=== PATIENT | female | born 1990 | race Caucasian/White ===

== ENCOUNTER 2018-02-27 06:03 | Day surgery (SDC) | payer OTHER ==
[2018-02-26 17:47] VITALS: BMI 33.6
[2018-02-27] MEDS ORDERED: LIDOCAINE HCL 1%, 10 MG/ML (20ML VIAL) ONE (07:23)
[2018-02-27] MEDS ORDERED: BACITRACIN 15 GM TUBE TOPICAL OINTMENT ONE (07:43)
[2018-02-27] MEDS ORDERED: MIDAZOLAM HCL 2 MG/2 ML SINGLE DOSE VIAL ONE ×4 (07:45→08:33)
[2018-02-27] MEDS ORDERED: PROPOFOL 20 ML ONE (08:26)
[2018-02-27] MEDS ORDERED: LIDOCAINE 1%/EPI 1:100000 (50 ML MULTI DOSE VIAL) INF ONE ×2 (08:28)
[2018-02-27] MEDS ORDERED: ceFAZolin SODIUM 1 GM VIAL ONE (08:29)
[2018-02-27] MEDS ORDERED: KETOROLAC TROMETHAMINE 30 MG/1 ML VIAL ONE (08:29)
[2018-02-27] MEDS ORDERED: CLINDAMYCIN PHOSPHATE 600 MG/4 ML VIAL ONE (08:29)
[2018-02-27] MEDS ORDERED: BACITRACIN/POLYMYXIN B SULFATE 10 GM BOTTLE TP ONE (08:49)
[2018-02-27 09:32] VITALS: TEMP 98.2
--- NOTE | 2018-02-27 09:35 | OP ---
Operative Note - Note: Operative Date: 02/27/18 Pre-Operative Diagnosis: Posterior and anterior scalp mass Operation: Excision of posterior and anterior scalp mass Post-Operative Diagnosis: Same as Pre-op Surgeon: Ino Kunz Anesthesia: Local, MAC Specimens Removed: Posterior and anterior scalp mass Estimated Blood Loss (mls): 5 Operative Report Dictated: Yes
[2018-02-27 09:50] VITALS: PULSE 81
--- NOTE | 2018-02-27 10:06 | OP ---
DATE OF OPERATION: 02/27/2018 SURGEON: Vicky Kunz MD PREOPERATIVE DIAGNOSIS: Posterior and anterior scalp mass. POSTOPERATIVE DIAGNOSIS: Posterior and anterior scalp mass. PROCEDURE: Excision of posterior and anterior scalp mass. SPECIMEN: Posterior scalp mass 2 cm x 3 cm in size, anterior scalp mass 1 cm x 1 cm in size. ESTIMATED BLOOD LOSS: 5 mL DRAINS: None. ANESTHESIA: MAC/local. The risks and benefits of the procedure were explained. These included bleeding, infection, recurrence of mass, injury to surrounding structures, VA, DVT, PE, as some of the complications, as well as wound dehiscence. Patient understood and signed informed consent. DESCRIPTION OF PROCEDURE: Patient was placed in the left lateral decubitus position. The posterior scalp mass was noted, and bacitracin was used to keep the hair surrounding it out of the way. The previous mass again was noted with the marking from the preoperative area. The area was prepped and draped in usual sterile fashion. Timeout was performed. Local anesthesia was injected, and a transverse incision was made. The area was dissected circumferentially and the mass excised. It was noted to be 2 cm x 3 cm in size. Hemostasis was noted. The wound was irrigated copiously and the wound closed with 2-0 nylon suture x2. Bacitracin was then placed over the wound. Patient was then placed in the supine position and the anterior mass noted. The area was prepped and draped in usual sterile fashion, and again, local anesthesia was injected. Transverse incision was again made and the mass noted and dissected circumferentially. The mass was noted to be 1 cm x 1 cm in size. Hemostasis was achieved and the wound irrigated. Next, 2-0 nylon suture x1 was used to close the skin. Bacitracin again was applied. Patient tolerated the procedure well, was transferred to recovery room in stable condition. VICKY KUNZ M.D. [id number]
[2018-02-27 11:04] VITALS: BP 115/61
--- NOTE | 2018-02-28 15:16 | PATH ---
Surgical Pathology Report Patient Name: ELVIN HINOJOSA [facility]. Rec. #: [id number] /Age/Gender: 1990 (Age: 27) / F Account: [id number] Location: [facility] SURGICAL Taken: 02/27/2018 Received: 02/27/2018 Reported: 02/28/2018 Physicians: Ino Kunz M.D. Specimen(s) Received A: NODULE FROM BACK OF HEAD SCALP B: NODULE FROM FORE HEAD Clinical History Mass forehead and back of head Final Diagnosis A. BACK OF THE HEAD SCALP, NODULE, EXCISION: TRICHILEMMAL CYST (PILAR CYST). B. FOREHEAD SCALP, NODULE, EXCISION: SKIN ADNEXA AND ADJACENT MATURE ADIPOSE TISSUE (SEE COMMENT). COMMENT: THIS MAY REPRESENT A LIPOMA IN A PROPER CLINICAL SETTING. Electronically Signed Hannah Gotti M.D. Gross Description A. Received in formalin labeled "nodule back of head scalp," is a 2.5 x 1.7 x 0.3 cm aggregate of multiple jenkins portions of soft tissue, consistent with a cyst and cyst contents. The specimen is entirely submitted in one cassette. B. Received in formalin labeled "nodule from forehead scalp," is a 0.5 x 0.4 x 0.2 cm jenkins-yellow portion of soft tissue. The specimen is submitted in toto in one cassette. 02/27/201802/27/2018
== END 2018-02-27 11:00 | disposition home or self-care (01) ==
LOC: JASU-SURG 06:03
PROVIDERS: ATTEND Surgery
PROC: 0JB00ZZ Excision of Scalp Subcutaneous Tissue and Fascia, Open Approach (ICD-10-PCS; 2018-02-27)
PROC: 0JB00ZZ Excision of Scalp Subcutaneous Tissue and Fascia, Open Approach (ICD-10-PCS; principal; 2018-02-27 08:00)
DX: D23.4 Other benign neoplasm of skin of scalp and neck (principal); L72.11 Pilar cyst
CPT/HCPCS: 84703; 88304-TC; 94760

== ENCOUNTER 2019-04-13 04:45 | Emergency (ER) | payer OTHER ==
[2019-04-13 05:20] VITALS: BMI 36.0
--- NOTE | 2019-04-13 05:41 | PDOC ---
History of Present Illness - General Chief Complaint: Allergic Reaction Stated Complaint: POSSIBLE ALLERGIC REACTION - History of Present Illness Initial Comments: The pt is a 28F w/ a history of spinal compression fx and chronic back pain who presents for evaluation of tongue swelling and dry mouth, first noticed at 0200 today after eating pizza with broccoli on it last night. She denies having this reaction to these foods previously. Currently in the ED, pt reports feeling anxious. Endorses NB diarrhea x1 Denies SOB, CP, fever, lightheadedness, change in sensation or taste, rash, swelling No suspicious foods. PMH: Denies PSH: Denies Meds: Denies Allergies: Pepto/PCN (facial swelling) SH: Social EtOH, denies tobacco or illicit drug use 04/13/19 05:49 Past History - Past Medical History Allergies/Adverse Reactions: Allergies Allergy/AdvReac Type Severity Reaction Status Date / Time bismuth subsalicylate Allergy Severe Swelling Verified 04/13/19 05:19 [From Pepto-Bismol] Penicillins AdvReac Severe Swelling Verified 04/13/19 05:19 Home Medications: Ambulatory Orders Ibuprofen [Motrin -] 600 mg PO PRN 12/27/14 Cetirizine HCl/Pseudoephedrine [Zyrtec-D Tablet] 1 each PO Q12H PRN 02/26/18 Docusate Sodium [Colace -] 100 mg PO TID #90 capsule 02/27/18 Oxycodone HCl/Acetaminophen [Percocet 5-325 mg Tablet] 1 - 2 tab PO Q6H #20 tab MDD 4 02/27/18 Diphenhydramine HCl [Benadryl -] 25 mg PO Q6H #16 capsule 04/13/19 Epinephrine [Epipen 2-Lee] 0.3 mg IJ ASDIR #1 kit 04/13/19 Prednisone [Deltasone] 40 mg PO DAILY #4 tablet 04/13/19 Asthma: Yes ("WITH ALLERGIES") Cancer: No Cardiac Disorders: No CVA: No COPD: No CHF: No Dementia: No Diabetes: No GI Disorders: No Disorders: No HTN: No Hypercholesterolemia: No Liver Disease: No Seizures: No Thyroid Disease: No - Surgical History Abdominal Surgery: No Appendectomy: No Cardiac Surgery: No Cholecystectomy: No Lung Surgery: No Neurologic Surgery: No Orthopedic Surgery: No - Immunization History Immunization Up to Date: Yes - Suicide/Smoking/Psychosocial Hx Smoking History: Never smoked Have you smoked in the past 12 months: No Information on smoking cessation initiated: No Hx Alcohol Use: No Drug/Substance Use Hx: No Substance Use Type: Alcohol Hx Substance Use Treatment: No Review of Systems - Review of Systems Able to Perform ROS?: Yes Comments:: GENERAL/CONSTITUTIONAL: No fever or chills. No weakness HEAD, EYES, EARS, NOSE AND THROAT: No change in vision. No ear pain or discharge. No sore throat CARDIOVASCULAR: No chest pain or shortness of breath RESPIRATORY: Denies cough, hemoptysis GASTROINTESTINAL: No nausea, vomiting, constipation GENITOURINARY: No dysuria, frequency, or change in urination MUSCULOSKELETAL: No joint or muscle swelling or pain. No neck or back pain SKIN: No rash NEUROLOGIC: No headache, vertigo, loss of consciousness, or change in strength/ sensation ENDOCRINE: No increased thirst. No abnormal weight change HEMATOLOGIC/LYMPHATIC: No anemia, easy bleeding, or history of blood clots ALLERGIC/IMMUNOLOGIC: No hives or skin allergy 04/13/19 05:40 Is the patient limited Danish proficient: No *Physical Exam - Vital Signs Last Vital Signs Temp Pulse Resp BP Pulse Ox 97.4 F L 72 18 128/81 98 04/13/19 05:19 04/13/19 05:19 04/13/19 05:19 04/13/19 05:04/13/19 05:19 - Physical Exam Comments: GENERAL: Awake, alert, and oriented to person/place/time, in no acute distress HEAD: No signs of trauma, normocephalic, atraumatic EYES: PERRLA, EOMI, sclera anicteric, conjunctiva clear ENT: Hearing grossly normal, nares patent, oropharynx clear without exudates. Moist mucosa LUNGS: No distress, speaks in full sentences, clear to auscultation bilaterally HEART: Regular rate and rhythm, normal S1 and S2, no murmurs appreciated, peripheral pulses normal and equal bilaterally ABDOMEN: Soft, nontender, normoactive bowel sounds. No guarding, no rebound EXTREMITIES: Normal inspection, Normal range of motion, no edema. No clubbing or cyanosis NEUROLOGICAL: Cranial nerves II through XII grossly intact. Normal speech, normal gait, no focal sensorimotor deficits SKIN: Warm, Dry 04/13/19 05:40 Medical Decision Making - Medical Decision Making 28F w/ no reported PMH presents for evaluation of dry mouth and swollen tongue concerning for allergic reaction ED Course Treatment initiated for presumed allergic reaction Will treat with Benadryl and Prednisone Rx for Benadryl, Prednisone, and EpiPen sent to pt's pharmacy Pt advised to keep an allergy journal Plan for D/C w/ Computer Systems Auditor and PCP Discharge instructions and return precautions given Pt in agreement and verbalized understanding Dispo: home 04/13/19 06:02 *DC/Admit/Observation/Transfer Diagnosis at time of Disposition: Allergic reaction Qualifiers: Encounter type: initial encounter Qualified Code(s): T78.40XA - Allergy, unspecified, initial encounter - Discharge Dispostion Disposition: HOME Condition at time of disposition: Stable Decision to Admit order: No - Prescriptions Prescriptions: Diphenhydramine HCl [Benadryl -] 25 mg PO Q6H #16 capsule Prednisone [Deltasone] 40 mg PO DAILY #4 tablet - Referrals Referrals: Jose Mariano [Primary Care Provider] - Samy Montemayor MD [Staff Physician] - - Patient Instructions Printed Discharge Instructions: DI for General Allergic Reactions Additional Instructions: You were seen in the Emergency Department for evaluation of concern for an allergic reaction. You were treated with Prednisone and Benadryl and a prescription for those were sent to your pharmacy as well for the next 4 days. A prescription for an EpiPen was sent as well. A referral was provided for an test engineering technician. Follow up with your primary care provider and the referral given. Review the handout provided at discharge. We would also recommend keeping a journal of possible allergy triggers. Return to the Emergency Department if you develop fevers/chills, chest pain, trouble breathing, chest tightness, difficulty swallowing, tongue or throat swelling, rash, worsening symptoms, or any new/concerning symptoms. - Post Discharge Activity
[2019-04-13] MEDS ORDERED: LACTATED RINGERS SOLUTION 1000 ML INFUS.BAG IV ONE (06:04)
[2019-04-13] MEDS ORDERED: diphenhydrAMINE HCL 25 MG CAPSULE (FP) PO ONE ×2 (06:04→06:08)
[2019-04-13] MEDS ORDERED: predniSONE 20 MG TABLET (UD) PO ONE (06:13)
[2019-04-13] MEDS ORDERED: predniSONE 20 MG TABLET (UD) ONE (06:16)
--- NOTE | 2019-04-13 06:18 | PDOC ---
Documentation entered by Angeles Hamm SCRIBE, acting as scribe for Anthony Banerjee MD. Anthony Banerjee MD: This documentation has been prepared by the tiffanieibeHansel Adrianna, SCRIBE, under my direction and personally reviewed by me in its entirety. I confirm that the documentation accurately reflects all work, treatment, procedures, and medical decision making performed by me. Attending Attestation - Resident Resident Name: Carl Lee - ED Attending Attestation I have performed the following: I have examined & evaluated the patient, The case was reviewed & discussed with the resident, I agree w/resident's findings & plan, Exceptions are as noted - HPI HPI: The patient is a 28 year old female, with a significant PMH of asthma, who presents to the ED for evaluation of swollen tongue and dry mouth for 4 hours. Patient notes she was out to dinner (pizza and 2 beers) earlier tonight, and later developed a tingling sensation on her tongue, with what she believes is tongue swelling and cotton mouth. She reports feeling anxious, and reports one episode of diarrhea secondary to the anxious feeling. She denies any changes in vision, sensation, rash, facial swelling, or numbness. Allergies: Penicillins, bismuth subsalicylate Surgical History: None reported Social History: Denies EtOH, tobacco, or illicit drug use. PCP: Dr. Mariano 04/13/19 06:18 - Physicial Exam PE: GENERAL: Awake, alert, and fully oriented, in no acute distress. Talking comfortably. HEAD: No signs of trauma ENT: Hearing grossly normal. No evidence of uvula swelling. No evidence of tongue swelling. No evidence of lip swelling. NECK: Normal ROM. Supple. LUNGS: Breath sounds equal, clear to auscultation bilaterally. No wheezes, and no crackles HEART: Regular rate and rhythm, normal S1 and S2, no murmurs, rubs or gallops EXTREMITIES: Normal range of motion, no edema. No clubbing or cyanosis. No cords, erythema, or tenderness NEUROLOGICAL: Cranial nerves II through XII grossly intact. Normal speech. 04/13/19 06:18 - Medical Decision Making 04/13/19 06:14 A portion of this note was documented by scribe services under my direction. I have reviewed the details of the note, within reason, and agree with the documentation with the following case summary and management plan written by me. Patient treated in the ED. Nursing notes are reviewed and incorporated into the medical decision-making. Vital signs reviewed. Peripheral IV access obtained by the nurse, laboratory studies are drawn and sent, reviewed and interpreted by myself. Vital Signs Temp Pulse Resp BP Pulse Ox 97.4 F L 72 18 128/81 98 04/13/19 05:19 04/13/19 05:19 04/13/19 05:19 04/13/19 05:19 04/13/19 05:19 28-year-old female patient presents with concerns for ALLERGIC reaction. The patient ate some pizza with broccoli on it yesterday. Since then she felt a tingling sensation on her tongue and what she thought was dry, and-like feeling and mild tongue swelling. Denies any chest pain or shortness of breath. Denies any changes in voice. Denies any other acute findings. The patient's physical exam is normal demonstrate no acute findings. We'll however treat as ALLERGIC reaction initiate Benadryl and prednisone. We'll write a prescription for EpiPen in case of anaphylaxis. An we'll refer patient to ALLERGY. I advised patient that she should keep a journal and track of what may potentially ALLERGIC to. I discussed the physical exam findings, ancillary test results and final diagnoses with the patient. I answered all of the patient's questions. The patient was satisfied with the care received and felt comfortable with the discharge plan and treatment plan. The patient will call their primary care physician within 24 hours to arrange follow-up and will return to the Emergency Department with any new, persistant or worsening symptoms.
[2019-04-13 06:42] VITALS: BP 123/60; PULSE 60; TEMP 98.1
== END 2019-04-13 06:43 | disposition home or self-care (01) ==
LOC: JER 04:45
DX: T78.40XA Allergy, unspecified, initial encounter (principal); X58.XXXA Exposure to other specified factors, initial encounter
CPT/HCPCS: 99282-25

== ENCOUNTER 2020-05-03 06:33 | Emergency (ER) | payer OTHER ==
[2020-05-03 06:43] VITALS: BMI 29.8
--- NOTE | 2020-05-03 07:04 | PDOC ---
History of Present Illness - General Chief Complaint: Pain Stated Complaint: ABDOMINAL PAIN Time Seen by Provider: 05/03/20 07:04 - History of Present Illness Initial Comments: 05/03/20 07:47 29 F with no PMH presented to the ED with 1 day of abdominal pain. She said pain started out yesterday after she ate spicy food. She has epigastric pain, and diarrhea. Pain was so severe; she couldn't sleep. But pain is relief after Motri n. Today, she came here to check out due to residual pain. She denies vomitting, nausea, chest pain, SOB, dizziness. PMH: sport induced asthma PSH: maxillary oral surgery, . Med: none SS: denies smoking, drug, and alcohol Allergy: penicillins, bismuth. ROS GENERAL/CONSTITUTIONAL: No fever or chills. No weakness. HEAD, EYES, EARS, NOSE AND THROAT: No change in vision. No ear pain or discharge. No sore throat. CARDIOVASCULAR: No chest pain or shortness of breath RESPIRATORY: No cough, wheezing, or hemoptysis. GASTROINTESTINAL: No nausea, vomiting, or constipation. +diarrhea, abdominal pain GENITOURINARY: No dysuria, frequency, or change in urination. MUSCULOSKELETAL: No joint or muscle swelling or pain. No neck or back pain. SKIN: No rash NEUROLOGIC: No headache, vertigo, loss of consciousness, or change in strength/sensation. ENDOCRINE: No increased thirst. No abnormal weight change HEMATOLOGIC/LYMPHATIC: No anemia, easy bleeding, or history of blood clots. ALLERGIC/IMMUNOLOGIC: No hives or skin allergy. PE GENERAL: Awake, alert, and fully oriented, in no acute distress HEAD: No signs of trauma, normocephalic, atraumatic EYES: PERRLA, EOMI, sclera anicteric, conjunctiva clear ENT: Auricles normal inspection, hearing grossly normal, nares patent, oropharynx clear without exudates. Moist mucosa NECK: Normal ROM, supple, no lymphadenopathy, JVD, or masses LUNGS: No distress, speaks full sentences, clear to auscultation bilaterally HEART: Regular rate and rhythm, normal S1 and S2, no murmurs, rubs or gallops, peripheral pulses normal and equal bilaterally. ABDOMEN: Soft, nontender, normoactive bowel sounds. No guarding, no rebound. No masses. Horizontal csection scar EXTREMITIES : Normal inspection, Normal range of motion, no edema. No clubbing or cyanosis. NEUROLOGICAL: Cranial nerves II through XII grossly intact. Normal speech, normal gait, no focal sensorimotor deficits SKIN: Warm, Dry, normal turgor, no rashes or lesions noted Past History - Medical History Allergies/Adverse Reactions: Allergies Allergy/AdvReac Type Severity Reaction Status Date / Time bismuth subsalicylate Allergy Severe Swelling Verified 05/03/20 06:37 [From Pepto-Bismol] Penicillins AdvReac Severe Swelling Verified 05/03/20 06:37 Home Medications: Ambulatory Orders Ferrous Sulfate [Iron] 325 mg PO DAILY 03/03/20 Insulin Detemir [Levemir Flextouch] 62 unit SQ HS 03/03/20 Prenat 115/Iron Fum/Folic/Dss [ 19 Tablet] 1 tab PO DAILY 03/03/20 Ibuprofen [Motrin -] 600 mg PO QID #60 tablet 03/05/20 Oxycodone HCl/Acetaminophen [Percocet 5-325 mg Tablet] 1 tab PO Q6H #5 tablet MDD 4 03/05/20 Ciprofloxacin HCl 500 mg PO BID #10 tablet 05/03/20 metroNIDAZOLE [Flagyl -] 500 mg PO TID 5 Days #15 tablet 05/03/20 Asthma: No Cancer: No Cardiac Disorders: No CVA: No COPD: No CHF: No Dementia: No Diabetes: Yes (GESTATIONAL DIABETES) GI Disorders: No Disorders: No HTN: No Hypercholesterolemia: No Liver Disease: No Seizures: No Thyroid Disease: No - Surgical History Abdominal Surgery: No Appendectomy: No Cardiac Surgery: No Cholecystectomy: No Lung Surgery: No Neurologic Surgery: No Orthopedic Surgery: No - Immunization History Td Vaccination: Yes TDAP Vaccination: Yes Immunization Up to Date: Yes - Psycho-Social/Smoking History Smoking History: Never smoked Have you smoked in the past 12 months: No Information on smoking cessation initiated: No - Substance Abuse Hx (Audit-C & DAST Scrn) How often the patient has a drink containing alcohol: Never Score: In Men: 4 or > Positive; In Women: 3 or > Positive: 0 Screen Result (Pos requires Nsg. Audit-10AR): Negative In the last yr the pt used illegal drug/Rx for NonMed reason: No Score: Yes response is considered Positive: 0 Screen Result (Positive result requires Nsg. DAST-10): Negative *Physical Exam - Vital Signs Last Vital Signs Temp Pulse Resp BP Pulse Ox 102 H 20 141/82 99 05/03/20 06:37 05/03/20 06:37 05/03/20 06:37 05/03/20 06:37 ED Treatment Course - LABORATORY CBC & Chemistry Diagram: 05/03/20 07:52 05/03/20 07:52 Medical Decision Making - Medical Decision Making 05/03/20 07:52 29 F with No PMH presented to the ED for abdominal pain after eating spicy food DDX: peptic ulcer, GI bugs, gallstone... Plan: Fluids, GI cocktail ( maalox, pepcid, tylenoL). 05/03/20 08:56 EKG show sinus rhthym with sinus arrhthmia, no ST changes suggesting ischemic , vent rate 62 05/03/20 10:33 Lab came back with Elevated AST, ALT, AL phos Abdominal ulstrasound revealed gallstone, no dilation of the duct. Consult gen surg . Gen surg called back. Dr. Contreras rec she should be going home, with augmentin for 5 days, and follow up with gen surg, and should be on a low fat diet. 05/03/20 10:3 05/03/20 10:[address] Petty , he rec to follow up by monday with discharge paper. Due to allergy to pencillin, she can't take augmentin. Will give flagil TID, and cipro BID Discharge - Discharge Information Problems reviewed: Yes Clinical Impression/Diagnosis: Gallstone Condition: Good Disposition: HOME - Admission No - Additional Discharge Information Prescriptions: Ciprofloxacin HCl 500 mg PO BID #10 tablet metroNIDAZOLE [Flagyl -] 500 mg PO TID 5 Days #15 tablet - Follow up/Referral Referrals: Amisha Ruiz MD [Primary Care Provider] - Samy Contreras MD [Staff Physician] - - Patient Discharge Instructions Patient Printed Discharge Instructions: DI for Gallstones, DI for Gastroeso phageal Reflux Disease (GERD) Additional Instructions: You are here for abdominal pain. We found gallstones on your ultrasound. General surgeon Dr. Contreras recommenced to go home with 2 antibiotics for 5 days, and have a low fat diet. Because you are allergic to penicillins, you cannot take augmentin. Please come back if you are having, worsening, nausea, vomiting, severe pain, yellow skin, pale stool. For pain, you can take tylenol. I sent the script of antibiotic to your preferred pharmacy. I called your PCP, he recommended you to go see him by Monday. Print Language: [place] ISLANDER - Post Discharge Activity
[2020-05-03] MEDS ORDERED: MAG HYDROX/AL HYDROX/SIMETH -MYLANTA- ORAL SUSPENSION PO ONE (07:25)
[2020-05-03] MEDS ORDERED: ACETAMINOPHEN 325 MG TABLET (FP) PO ONE (07:25)
[2020-05-03] MEDS ORDERED: FAMOTIDINE 20 MG TABLET PO ONE (07:25)
[2020-05-03] MEDS ORDERED: LACTATED RINGERS SOLUTION 1000 ML INFUS.BAG IV ONE (07:33)
[2020-05-03] MEDS ORDERED: FAMOTIDINE 20 MG/50 ML IVPB 20 MG/50 ML MG IVPB ONE ×2 (07:34→07:40)
[2020-05-03] MEDS ORDERED: ACETAMINOPHEN INJECTION 100 ML IVPB ONE (07:39)
[2020-05-03] MEDS ORDERED: MAG HYDROX/AL HYDROX/SIMETH 30 ML UNIT-DOSE CUP ONE (07:40)
--- NOTE | 2020-05-03 07:53 | PDOC ---
Attending Attestation - Resident Resident Name: GilmarNikolaiEvan - ED Attending Attestation I have performed the following: I have examined & evaluated the patient, The case was reviewed & discussed with the resident, I agree w/resident's findings & plan, Exceptions are as noted - HPI HPI: 05/03/20 07:48 29 YOF with h/o chronic back pain from lumbar compression fracture who is 2 months s/p LTCS after induction and CLAUDIA for post-term , was c/b GDM, who p/w epigastric pain last night until this morning, now with only mild residual pain. She notes having ate a spicy pepper sauce last night. She also notes recent exacerbated chronic back pain which is otherwise unchanged in character from her normal chronic pain. Denies f/c/n/v/d/c, LARA, lightheadedness, vertigo, n/t/w focally, chance of being currently, or other concerns. Denies ever having this pain before. - Physicial Exam PE: 05/03/20 07:53 GENERAL: well-appearing, A/Ox4, no distress, answers questions appropriately, pleasant, obese HEENT: PERRLA, EOMI, moist mucous membranes NECK/BACK: no midline ttp, no spinal step-off or deformity, no hematoma, full ROM, neck supple CARDIOVASCULAR: regular rate/rhythm, no MGR, strong peripheral pulses, capillary refill <2 seconds, extremities wwp, no edema LUNGS/RESPIRATORY: no respiratory distress, CTAB GI/ABDOMEN: gravid abdomen, symmetric [id number], normoactive BS, soft, minimal epigastric ttp, no midline pulsatile masses : no CVA tenderness MSK/EXTREMITIES: no muscle atrophy, no acute deformity SKIN: warm and dry, no pallor, no jaundice, no rash, no pathologic-appearing bruising, no skin breakdown, no cuts, no lesions NEUROLOGICAL: GCS 15, CN II-XII grossly intact, 5/5 strength proximally and distally, no facial droop - Medical Decision Making 05/03/20 09:04 29YOF, 2 months post-op from uncomplicated LTCS, p/w epigastric abdominal pain without prior history. Initial Vital Signs Pulse Resp BP Pulse Ox 102 H 20 141/82 99 05/03/20 06:37 05/03/20 06:37 05/03/20 06:37 05/03/20 06:37 DDX IBNLT: most likely GERD, PUD, or cholecystitis (calculous), choledocholithiasis, wwo pancreatitis. Possible musculoskel etal/constipation/gas. Very unlikely Ryyl-Deti-Dfvxbm syndrome, HELLP, or other more rare etiology. W/U ordered: Labs, EKG, USS limited GB TX ordered: IVF, Tylenol, Pepcid, Maalox Laboratory Tests 05/03/20 05/03/20 07:52 07:52 WBC 11.6 H RBC 4.78 Hgb 13.5 Hct 41.1 D MCV 86.1 MCH 28.3 MCHC 32.9 RDW 13.9 D Plt Count 367 D MPV 8.0 Sodium 138 Potassium 4.6 Chloride 106 Carbon Dioxide 24 Anion Gap 7 L BUN 13.3 Creatinine 0.7 Est GFR (CKD-EPI)AfAm 134.75 Est GFR (CKD-EPI)NonAf 116.26 Random Glucose 87 Calcium 9.3 Total Bilirubin 1.0 AST 102 H ALT 111 H Alkaline Phosphatase 136 H Total Protein 7.6 Albumin 3.7 Lipase 161 05/03/20 09:08 Patient's LFTs elevated and will get USS abdomen limited r/o cholecystitis/choledocholithiasis. US/ABDOMEN US -LIMITED HISTORY PROVIDED: Right upper quadrant pain. Real time examination of the abdomen demonstrates the following: The gallbladder is normal in size and does contain small calculi. There is no evidence of intra or extrahepatic biliary duct dilatation. The liver is enlarged measuring 20 cm in craniocaudad dimension. It is hyperechoic in texture consistent with diffuse fatty infiltration. No discrete intrahepatic masses are identified. Hepatopedal flow is documented within the main portal vein. The pancreas is normal in size and texture with no pancreatic masses identified. The tail of the pancreas was not well visualized due to overlying bowel gas. There is no evidence of hydronephrosis or acute abnormalities of the right kidney. There is no evidence of AAA. The IVC is patent. IMPRESSION: 1. Cholelithiasis. 2. Hepatomegaly with diffuse fatty infiltration of the liver. Patient's pain has much improved after medications. We have spoken with Dr. Contreras (radio television announcer for Gen Surg) and discussed all results including H&P, labs, imaging, and repeat exam after medications. Dr. Contreras who requests antibiotics as outpatient and low-fat diet, f/u in clinic with him. Last Vital Signs Temp Pulse Resp BP Pulse Ox 98.1 F 65 16 121/75 100 05/03/20 10:37 05/03/20 10:37 05/03/20 10:37 05/03/20 10:37 05/03/20 10:37 On last re-assessment patient has benign abdominal exam without tenderness, states she is comfortable with the plan. VSS. We discuss specific return pr ecautions as noted by the residents in her discharge instructions. She is instructed to come back for any new or concerning symptoms and she is instructed to have very low threshold to come back in. Heart Score/ECG Review #1 05/03/20 08:46 Sinus rhythm, rate 62, normal axis and intervals, no ischemic ST-T changes Discharge - Discharge Information Problems reviewed: Yes Clinical Impression/Diagnosis: Gallstone, Biliary colic Condition: Good Disposition: HOME - Admission No - Follow up/Referral Referrals: Amisha Ruiz MD [Primary Care Provider] - Samy Contreras MD [Staff Physician] - - Patient Discharge Instructions Patient Printed Discharge Instructions: DI for Gallstones, DI for Gastroesophageal Reflux Disease (GERD) Additional Instructions: You are here for abdominal pain. We found gallstones on your ultrasound. General surgeon Dr. Contreras recommenced to go home with 2 antibiotics for 5 days, and have a low fat diet. Because you are allergic to penicillins, you cannot take augmentin. Please come back if you are having, worsening, nausea, vomiting, severe pain, yellow skin, pale stool. For pain, you can take tylenol. I sent the script of antibiotic to your preferred pharmacy. I called your PCP, he recommended you to go see him by Monday. Print Language: SYRIAC - Post Discharge Activity
[2020-05-03 08:24] LABS: HEMATOCRIT 41.1 % (32.4-45.2); HEMOGLOBIN 13.5 GM/dL (10.7-15.3); MCH 28.3 pg (25.7-33.7); MCHC 32.9 g/dl (32.0-36.0); MEAN CELL VOLUME 86.1 fl (80-96); PLATELET COUNT 367 K/MM3 (134-434); RBC 4.78 M/mm3 (3.60-5.2); RDW 13.9 % (11.6-15.6); WHITE BLOOD COUNT 11.6 K/mm3 (4.0-10.0)
[2020-05-03 08:51] LABS: ALBUMIN 3.7 g/dl (3.4-5.0); BLOOD UREA NITROGEN 13.3 mg/dL (7-18); CALCIUM 9.3 mg/dL (8.5-10.1); CREATININE 0.7 mg/dL (0.55-1.3); POTASSIUM 4.6 mmol/L (3.5-5.1); TOT PROT 7.6 g/dl (6.4-8.2)
[2020-05-03 10:39] VITALS: BP 121/75; PULSE 65; TEMP 98.1
--- NOTE | 2020-05-03 17:21 | EKG ---
Test Reason : Blood Pressure : / mmHG Vent. Rate : 062 BPM Atrial Rate : 062 BPM P-R Int : 142 ms QRS Dur : 076 ms QT Int : 418 ms P-R-T Axes : 045 041 049 degrees QTc Int : 424 ms NORMAL SINUS RHYTHM WITH SINUS ARRHYTHMIA CANNOT RULE OUT ANTERIOR INFARCT , AGE UNDETERMINED ABNORMAL ECG NO PREVIOUS ECGS AVAILABLE Confirmed by MD Madison Edward ([id number]) on 05/03/2020 5:21:13 PM Referred By: Confirmed By:Larry Madison MD
== END 2020-05-03 11:15 | disposition home or self-care (01) ==
LOC: JER 06:33
PROC: 3E033GC Introduction of Other Therapeutic Substance into Peripheral Vein, Percutaneous Approach (ICD-10-PCS; principal; 2020-05-03)
DX: K80.20 Calculus of gallbladder without cholecystitis without obstruction (principal)
CPT/HCPCS: 36415; 76705-TC; 80053; 83690; 85027; 93005; 93010; 99285-25

== ENCOUNTER 2020-05-04 23:24 | Emergency (ER) | payer OTHER ==
[2020-05-04 23:38] VITALS: BMI 33.5
--- NOTE | 2020-05-04 23:43 | PDOC ---
Rapid Medical Evaluation Chief Complaint: Pain Time Seen by Provider: 05/04/20 23:36 Medical Evaluation: Allergies Allergy/AdvReac Type Severity Reaction Status Date / Time bismuth subsalicylate Allergy Severe Swelling Verified 05/03/20 06:37 [From Pepto-Bismol] Penicillins AdvReac Severe Swelling Verified 05/03/20 06:37 Vital Signs Temp Pulse Resp BP Pulse Ox 98.0 F 62 131/87 99 05/04/20 23:32 05/04/20 23:32 05/04/20 23:32 05/04/20 23:32 05/04/20 23:39 29 year old female with gallstones c/o epigastric pain. " i'm having a gall bladder attack" seen in the ER last night for similar complaints. PE: patient alert ox3. A: epigastric abdominal pain P: labs UA 05/04/20 23:42 Discharge Disposition - Diagnosis Epigastric abdominal pain - Discharge Dispostion Last Admission D/C Date: 03/05/20 - Referrals Referrals: Amisha Ruiz MD [Primary Care Provider] - - Patient Instructions - Post Discharge Activity
--- NOTE | 2020-05-05 00:19 | PDOC ---
History of Present Illness - General Chief Complaint: Pain Stated Complaint: PAIN/GALLSTONES/EVALUATION Time Seen by Provider: 05/04/20 23:36 History Source: Patient - History of Present Illness Initial Comments: 05/05/20 01:11 29 year old female c/o epigastric pain Patient was diagnosed with cholelithi asis 2 days ago reports taking Pepcid prior to arrival currently with no pain. Patient has no vomiting no nausea. Patient denies fever/chills. Patient reports that she ate a low-fat diet today Past History - Medical History Allergies/Adverse Reactions: Allergies Allergy/AdvReac Type Severity Reaction Status Date / Time bismuth subsalicylate Allergy Severe Swelling Verified 05/03/20 06:37 [From Pepto-Bismol] Penicillins AdvReac Severe Swelling Verified 05/03/20 06:37 Home Medications: Ambulatory Orders Ferrous Sulfate [Iron] 325 mg PO DAILY 03/03/20 Insulin Detemir [Levemir Flextouch] 62 unit SQ HS 03/03/20 Prenat 115/Iron Fum/Folic/Dss [ 19 Tablet] 1 tab PO DAILY 03/03/20 Ibuprofen [Motrin -] 600 mg PO QID #60 tablet 03/05/20 Oxycodone HCl/Acetaminophen [Percocet 5-325 mg Tablet] 1 tab PO Q6H #5 tablet MDD 4 03/05/20 Ciprofloxacin HCl 500 mg PO BID #10 tablet 05/03/20 metroNIDAZOLE [Flagyl -] 500 mg PO TID 5 Days #15 tablet 05/03/20 Famotidine [Pepcid -] 40 mg PO DAILY #14 tablet 05/05/20 Asthma: No Cancer: No Cardiac Disorders: No CVA: No COPD: No CHF: No Dementia: No Diabetes: Yes (GESTATIONAL DIABETES) GI Disorders: No Disorders: No HTN: No Hypercholesterolemia: No Liver Disease: No Seizures: No Thyroid Disease: No - Surgical History Abdominal Surgery: No Appendectomy: No Cardiac Surgery: No Cholecystectomy: No Lung Surgery: No Neurologic Surgery: No Orthopedic Surgery: No - Immunization History Td Vaccination: Yes TDAP Vaccination: Yes Immunization Up to Date: Yes - Psycho-Social/Smoking History Smoking History: Never smoked Have you smoked in the past 12 months: No Information on smoking cessation initiated: No - Substance Abuse Hx (Audit-C & DAST Scrn) How often the patient has a drink containing alcohol: Never Score: In Men: 4 or > Positive; In Women: 3 or > Positive: 0 Screen Result (Pos requires Nsg. Audit-10AR): Negative In the last yr the pt used illegal drug/Rx for NonMed reason: No Score: Yes response is considered Positive: 0 Screen Result (Positive result requires Nsg. DAST-10): Negative Review of Systems - Review of Systems Able to Perform ROS?: Yes Is the patient limited Croatian proficient: No Constitutional: No: Symptoms Reported, See HPI, Chills, Diaphoresis, Fever, Loss of Appetite, Malaise, Night Sweats, Weakness, Weight Stable, Unintentional Wgt. Loss, Unexplained wgt Loss, Other ABD/GI: Yes: Abdominal cramping. No: Symptoms Reported, See HPI, Abdominal Distended, Abd. Pain w/ defecation, Blood Streaked Bowels, Constipated, Diarrhea, Difficulty Swallowing, Nausea, Poor Appetite, Poor Fluid Intake, Rectal Bleeding, Vomiting, Indigestion, Tarry Stools, Other : No: Symptoms Reported, See HPI, Burning, Dysuria, Discharge, Frequency, Flank Pain, Hematuria, Incontinence, Pain, Urgency, Testicular Mass, Testicular Swelling, Lesions, Testicular Pain, Other *Physical Exam - Vital Signs Last Vital Signs Temp Pulse Resp BP Pulse Ox 98.0 F 62 20 131/87 99 05/04/20 23:32 05/04/20 23:32 05/04/20 23:32 05/04/20 23:32 05/04/20 23:32 - Physical Exam General Appearance: Yes: Appropriately Dressed Respiratory/Chest: positive: Lungs Clear, Normal Breath Sounds Cardiovascular: positive: Regular Rhythm, Regular Rate Gastrointestinal/Abdominal: positive: Normal Bowel Sounds, Soft. negative: Tender, Flat, Organomegaly, Pulsatile Mass, Increased Bowel Sounds, Decreased BS, Protuberent, Distended, Guarding, Rebound, Tenderness, Hernia, Mass, Hepatomegaly, Spleenomegaly, Other Extremity: positive: Normal Capillary Refill, Normal Inspection, Normal Range of Motion Integumentary: positive: Normal Color, Dry, Warm Neurologic: positive: Fully Oriented, Alert, Normal Mood/Affect ED Treatment Course - LABORATORY CBC & Chemistry Diagram: 05/05/20 00:32 05/05/20 00:32 ED Progress Note - Progress Note Progress Note: 05/05/20 05:03 A: cholelithiases; fatty liver P: cbc cmp LFTS: elevated US: negative Medical Decision Making - Medical Decision Making 05/05/20 02:15 Abdominal US: Right upper quadrant pain,The liver is mildly fatty and enlarged up to 20.4 cm, without mass or biliary duct dilation. Small mobile gallstone is noted without secondary findings of cholecystitis. The CBD is not dilated and measures5 millimeters in diameter. Right kidney measures 10.7centimeters in length and is unremarkable. The visualized aorta and IVC are normal. Pancreas is partially obscured, but appears normal. Abdominal duplex: There is normal hepatopedal flow in the main portal vein. IMPRESSION: Enlarged mildly fatty liver 05/05/20 strict return precautions were reviewed with patient. Discharge - Discharge Information Problems reviewed: Yes Clinical Impression/Diagnosis: Epigastric abdominal pain, Fatty liver, Elevated liver enzymes Cholelithiasis Qualifiers: Cholelithiasis location: gallbladder Cholecystitis presence: without cholecystitis Biliary obstruction: without biliary obstruction Qualified Code(s): K80.20 - Calculus of gallbladder without cholecystitis without obstruction Condition: Improved Disposition: HOME - Additional Discharge Information Prescriptions: Famotidine [Pepcid -] 40 mg PO DAILY #14 tablet - Follow up/Referral Referrals: Amisha Ruiz MD [Primary Care Provider] - Call tomorrow - Patient Discharge Instructions Patient Printed Discharge Instructions: Gallstones Additional Instructions: Please follow-up with your primary doctor soon as possible. Return to the emergency room immediately if you are having fever, nausea, vomiting, severe abdominal pain. You may continue taking Pepcid as prescribed - Post Discharge Activity
[2020-05-05 01:04] LABS: BASO % 0.7 % (0-2.0); EOS % 2.5 % (0-4.5); HEMATOCRIT 40.1 % (32.4-45.2); LYMPH % 26.4 % (8-40); MCH 28.2 pg (25.7-33.7); MCHC 32.5 g/dl (32.0-36.0); MEAN CELL VOLUME 86.6 fl (80-96); MEAN PLT VOLUME 7.9 fl (7.5-11.1); MONO % 5.1 % (3.8-10.2); NEUT % 65.3 % (42.8-82.8); PLATELET COUNT 356 K/MM3 (134-434); RBC 4.63 M/mm3 (3.60-5.2); RDW 13.9 % (11.6-15.6); WHITE BLOOD COUNT 8.8 K/mm3 (4.0-10.0)
[2020-05-05 01:38] LABS: ALBUMIN 4.2 g/dl (3.4-5.0); BILIRUBIN,TOTAL 1.8 mg/dL (0.2-1); BLOOD UREA NITROGEN 14.5 mg/dL (7-18); CALCIUM 9.9 mg/dL (8.5-10.1); CREATININE 0.8 mg/dL (0.55-1.3); POTASSIUM 4.6 mmol/L (3.5-5.1); TOT PROT 7.9 g/dl (6.4-8.2)
[2020-05-05 02:25] LABS: EPI CELLS 18 /uL (0-25.1); HYALINE CASTS 0 /uL (0-3.1); URINE APPEARANCE CLEAR; URINE BACTERIA 219 /uL (0-1359); URINE BILIRUBIN NEGATIVE (NEGATIVE); URINE COLOR YELLOW; URINE GLUCOSE (UA) NEGATIVE (NEGATIVE); URINE KETONE NEGATIVE (NEGATIVE); URINE LEUK ESTERASE TRACE (NEGATIVE); URINE NITRITE NEGATIVE (NEGATIVE); URINE PROTEIN NEGATIVE (NEGATIVE); URINE RBC 21 /uL (0-23.9); URINE UROBILINOGEN 0.2 mg/dL (0.2-1.0); URINE WBC 10 /uL (0-25.8)
[2020-05-05 02:26] LABS: HCG,QUALITATIVE URINE Negative
[2020-05-05 02:36] VITALS: BP 126/72; PULSE 79; TEMP 98.3
--- NOTE | 2020-05-05 09:14 | EKG ---
Test Reason : Blood Pressure : / mmHG Vent. Rate : 067 BPM Atrial Rate : 067 BPM P-R Int : 150 ms QRS Dur : 080 ms QT Int : 410 ms P-R-T Axes : 036 038 043 degrees QTc Int : 433 ms NORMAL SINUS RHYTHM CANNOT RULE OUT ANTERIOR INFARCT (CITED ON OR BEFORE 03-MAY-2020) ABNORMAL ECG WHEN COMPARED WITH ECG OF 03-MAY-2020 08:46, NO SIGNIFICANT CHANGE WAS FOUND Confirmed by MD RUTH, CHANCE ([id number]) on 05/05/2020 9:13:57 AM Referred By: Confirmed By:CHANCE MIRANDA MD
== END 2020-05-05 02:36 | disposition home or self-care (01) ==
LOC: JER 23:24
DX: K80.20 Calculus of gallbladder without cholecystitis without obstruction (principal); K76.0 Fatty (change of) liver, not elsewhere classified; R94.5 Abnormal results of liver function studies
CPT/HCPCS: 36415; 76705-TC; 80053; 81003; 83690; 84703; 85025; 93005; 93010; 99285-25

== ENCOUNTER 2020-05-06 23:28 | Inpatient (IN) | payer OTHER ==
--- NOTE | 2020-05-06 23:46 | PDOC ---
History of Present Illness - General Chief Complaint: Pain Stated Complaint: PAIN - History of Present Illness Initial Comments: The pt is a 29F w/ no reported PMH who presents for evaluation of several days of intermittent epigastric/RUQ abdominal pain. The pain is sharp/achy, radiates to her R flank/back, is intermittent, and is not exacerbated or alleviated by anything she can identify. She was seen previously and told she had gallstones and elevated liver enzymes. She was sent in for admission for symptomatic cholelithiasis Denies fevers/chills, chest pain, trouble breathing, diarrhea, dysuria, hematuria, or changes in sensation. 05/07/20 02:23 Past History - Medical History Allergies/Adverse Reactions: Allergies Allergy/AdvReac Type Severity Reaction Status Date / Time bismuth subsalicylate Allergy Severe Swelling Verified 05/03/20 06:37 [From Pepto-Bismol] Penicillins AdvReac Severe Swelling Verified 05/03/20 06:37 Home Medications: Ambulatory Orders Ferrous Sulfate [Iron] 325 mg PO DAILY 03/03/20 Insulin Detemir [Levemir Flextouch] 62 unit SQ HS 03/03/20 Prenat 115/Iron Fum/Folic/Dss [ 19 Tablet] 1 tab PO DAILY 03/03/20 Ibuprofen [Motrin -] 600 mg PO QID #60 tablet 03/05/20 Oxycodone HCl/Acetaminophen [Percocet 5-325 mg Tablet] 1 tab PO Q6H #5 tablet MDD 4 03/05/20 Ciprofloxacin HCl 500 mg PO BID #10 tablet 05/03/20 metroNIDAZOLE [Flagyl -] 500 mg PO TID 5 Days #15 tablet 05/03/20 Famotidine [Pepcid -] 40 mg PO DAILY #14 tablet 05/05/20 Asthma: No Cancer: No Cardiac Disorders: No CVA: No COPD: No CHF: No Dementia: No Diabetes: Yes (GESTATIONAL DIABETES) GI Disorders: No Disorders: No HTN: No Hypercholesterolemia: No Liver Disease: No Seizures: No Thyroid Disease: No - Surgical History Abdominal Surgery: No Appendectomy: No Cardiac Surgery: No Cholecystectomy: No Lung Surgery: No Neurologic Surgery: No Orthopedic Surgery: No - Immunization History Td Vaccination: Yes TDAP Vaccination: Yes Immunization Up to Date: Yes - Psycho-Social/Smoking History Smoking History: Never smoked Have you smoked in the past 12 months: No Information on smoking cessation initiated: No - Substance Abuse Hx (Audit-C & DAST Scrn) How often the patient has a drink containing alcohol: Never Score: In Men: 4 or > Positive; In Women: 3 or > Positive: 0 Screen Result (Pos requires Nsg. Audit-10AR): Negative In the last yr the pt used illegal drug/Rx for NonMed reason: No Score: Yes response is considered Positive: 0 Screen Result (Positive result requires Nsg. DAST-10): Negative Review of Systems - Review of Systems Able to Perform ROS?: Yes Comments:: GENERAL/CONSTITUTIONAL: No fever or chills. No weakness HEAD, EYES, EARS, NOSE AND THROAT: No change in vision. No change in hearing. No sore throat CARDIOVASCULAR: No chest pain or shortness of breath RESPIRATORY: Denies cough, hemoptysis GASTROINTESTINAL: per HPI GENITOURINARY: No dysuria, frequency, or change in urination MUSCULOSKELETAL: No joint or muscle swelling or pain. No neck or back pain SKIN: No rash NEUROLOGIC: No headache, vertigo, loss of consciousness, or change in strength/sensation ENDOCRINE: No increased thirst. No abnormal weight change HEMATOLOGIC/LYMPHATIC: No anemia, easy bleeding, or history of blood clots ALLERGIC/IMMUNOLOGIC: No hives or skin allergy 05/06/20 23:45 Is the patient limited Solomon Islander proficient: No *Physical Exam - Vital Signs Last Vital Signs Temp Pulse Resp BP Pulse Ox 97.4 F L 69 20 139/94 99 05/06/20 23:43 05/06/20 23:43 05/06/20 23:43 05/06/20 23:43 05/06/20 23:43 - Physical Exam GENERAL: Awake, alert, and oriented to person/place/time, in no acute distress HEAD: No signs of trauma, normocephalic, atraumatic EYES: PERRLA, EOMI, sclera anicteric, conjunctiva clear ENT: Hearing grossly normal, nares patent, oropharynx clear without exudates. Moist mucosa LUNGS: No distress, speaks in full sentences, clear to auscultation bilaterally HEART: Regular rate and rhythm, normal S1 and S2, no murmurs appreciated, peripheral pulses normal and equal bilaterally ABDOMEN: Soft, epigastric TTP w/o rebound/guarding, normoactive bowel sounds. EXTREMITIES: Normal inspection, Normal range of motion, no edema. No clubbing or cyanosis NEUROLOGICAL: Cranial nerves II through XII grossly intact. Normal speech, normal gait, no focal sensorimotor deficits SKIN: Warm, Dry 05/06/20 23:45 ED Treatment Course - LABORATORY CBC & Chemistry Diagram: 05/07/20 00:05 05/07/20 00:05 - RADIOLOGY Radiology Studies Ordered: Category Date Time Status ABDOMEN US -LIMITED [US] Stat Ultrasound 05/06/20 23:45 Ordered Medical Decision Making - Medical Decision Making The pt is a 29F w/ no reported PMH who presents for evaluation of several days of intermittent epigastric/RUQ abdominal pain. ED Course CMP, CBC, Coags, T/S ECG RUQ US Tylenol for pain Transaminitis and elevated Tbili noted Lipase wnl No leukocytosis No anemia Lytes overall unremarkable No ELVIRA Upreg neg Pt with symptomatic cholelithiasis Plan for admission for surgical evaluation 05/07/20 02:29 Discharge - Discharge Information Problems reviewed: Yes Clinical Impression/Diagnosis: Symptomatic cholelithiasis, Transaminitis, Choledocholithiasis Condition: Stable - Admission Yes - Follow up/Referral - Patient Discharge Instructions - Post Discharge Activity
--- NOTE | 2020-05-06 23:57 | PDOC ---
Attending Attestation - Resident Resident Name: Carl Lee - ED Attending Attestation I have performed the following: I have examined & evaluated the patient, The case was reviewed & discussed with the resident, I agree w/resident's findings & plan - HPI HPI: 05/06/20 23:56 29 y/o female with h/o gallstones, post 2 months, presenting with worsening epigastric/RUQ pain radiating to the back, nausea. no vomiting, no diarrhea, no f/c sent in by Dr Ruiz for admission, continued symptomatic cholelithiasis, concern also for choledocholithiasis. The pain is sharp/achy, radiates to her R flank/back, is intermittent, and is no t exacerbated or alleviated by anything she can identify. Denies fevers/chills, chest pain, trouble breathing, diarrhea, dysuria, hematuria, or changes in sensation. Patient has had 2 ultrasounds done in the last 2 ED visits on 05/03 and 05/05, revealing cholelithiasis, hepatomegaly and diffuse fatty liver infiltration otherwise no cholecystitis for those times. Laboratory results were also review ed during that time and revealed transaminitis on the . Patient has worsening symptoms and there is concern for choledocholithiasis versus acute cholecystitis, will need to repeat ultrasound, repeat labs She was seen previously and told she had gallstones and elevated liver enzymes. 05/07/20 00:19 05/07/20 03:11 - Physicial Exam PE: 05/07/20 00:35 General: Well appearing, awake and alert, NAD. HEENT: NCAT, PERRL, EOMI, clear conjunctiva, anicteric, moist mucous membranes, clear oropharynx, no oral lesions.. Neck: neck supple, FROM Resp: CTAB, normal and even respirations, no respiratory distress CVS: RRR, no murmurs, 2+ peripheral pulses throughout, no peripheral edema Abdomen: soft, +RUQ and epigastric TTP, neg ornelas's, no rebound or guarding. No CVAT. MSK: no edema, BYRNES x4, ROM intact. No clubbing or cyanosis. normal bulk and tone. Extremities: no calf tenderness Neuro: alert, oriented appropriately; no focal neurologic deficits Skin: warm and well perfused, cap refill <2 sec, normal color - Medical Decision Making 05/06/20 23:56 Vital Signs Temp Pulse Resp BP Pulse Ox 97.4 F L 69 20 139/94 99 05/06/20 23:43 05/06/20 23:43 05/06/20 23:43 05/06/20 23:43 05/06/20 23:43 Patient has had 2 ultrasounds done in the last 2 ED visits on 05/03 and 05/05, rev ealing cholelithiasis, hepatomegaly and diffuse fatty liver infiltration otherwise no cholecystitis for those times. she was started on cipro/flagyl course beginning 05/03 per recs of surgery. Laboratory results were also reviewed during that time and revealed transaminitis on the . Patient has worsening symptoms and there is concern for choledocholithiasis versus acute cholecystitis, will need to repeat ultrasound, repeat labs review of GB sono from the last 2 days, with gallstones noted. cbd measured at 0.5cm kobe with choledocholithiasis vitals here wnl no fever no systemic sx +RUQ and epigastric pain analgesia, hydration antiemetics labs and lytes with consistently elevated bili and LFTs, no wbc ct. normal lipase, so not pancreatitis. no peritoneal exam ultrasound shows fatty liver, no cholecystitis, cbd ~0.5cm, read as normal, but technically abnormal due to her age and cbd >0.4cm. warrants admission for her symptomatic cholelithiasis and early choledocholithiasis.. [facility] and surgery cs as inpatient, medical eval, likely mrcp. admitting to Dr Camejo. 05/07/20 00:20 05/07/20 03:12 05/07/20 03:15 Heart Score/ECG Review #1 ECG reviewed & interpreted by me at: 00:15 General ECG Interpretation: Sinus Rhythm, Normal Rate, Normal Intervals 05/07/20 00:39 EKG normal sinus rhythm 65 bpm, no interval abnormalities, narrow QRS, ST and T wave segments and morphology normal. Discharge - Discharge Information Problems reviewed: Yes Clinical Impression/Diagnosis: Symptomatic cholelithiasis, Transaminitis, Choledocholithiasis Condition: Stable - Admission Yes - Follow up/Referral - Patient Discharge Instructions - Post Discharge Activity
[2020-05-07 00:44] LABS: BASO % 0.6 % (0-2.0); EOS % 1.8 % (0-4.5); HEMATOCRIT 42.2 % (32.4-45.2); HEMOGLOBIN 13.7 GM/dL (10.7-15.3); LYMPH % 25.1 % (8-40); MCHC 32.5 g/dl (32.0-36.0); MEAN CELL VOLUME 86.2 fl (80-96); MONO % 6.2 % (3.8-10.2); NEUT % 66.3 % (42.8-82.8); PLATELET COUNT 394 K/MM3 (134-434); RDW 13.6 % (11.6-15.6); WHITE BLOOD COUNT 11.2 K/mm3 (4.0-10.0)
[2020-05-07 01:07] LABS: INR 0.96 (0.83-1.09); PROTHROMBIN TIME (PATIENT) 11.3 SEC (9.7-13.0)
[2020-05-07 01:10] LABS: ACTIVATED PTT 36.2 SECONDS (25.2-36.5)
[2020-05-07 01:19] LABS: ALBUMIN 4.3 g/dl (3.4-5.0); BILIRUBIN,TOTAL 1.7 mg/dL (0.2-1); BLOOD UREA NITROGEN 16.9 mg/dL (7-18); CALCIUM 9.8 mg/dL (8.5-10.1); POTASSIUM 3.9 mmol/L (3.5-5.1); TOT PROT 8.3 g/dl (6.4-8.2)
--- NOTE | 2020-05-07 01:44 | PN ---
Teaching Attending Note Name of Resident: Gian Yang ATTENDING PHYSICIAN STATEMENT I saw and evaluated the patient. I reviewed the resident's note and discussed the case with the resident. I agree with the resident's findings and plan as documented. SUBJECTIVE: Patient is a 29 year old woman with a PMH of Gestational diabetes, Spinal compression fracture, Chronic back pain and Penicillin allergy who presents for evaluation of several days of intermittent epigastric/RUQ abdominal pain. The pain is sharp, achy, radiates to her right flank/back and is intermittent. There are no exacerbating or alleviating factors. She was seen in our ER twice in the past 4 days, and told she had gallstones and elevated liver enzymes. Had abdomi nal sonograms on both occasions and was discharged on 05/03/2020 with prescriptions for Flagyl and Cipro and asked to et a low fat diet. She was sent in for admission by her PCP for symptomatic cholelithiasis. Patient denies chest pain, shortness of breath, headache, palpitations, dizziness, fever, chills, nausea, vomiting, diarrhea, constipation, dysuria, frequency, urgency, melena, hematochezia or hematuria. Denies alcohol, tobacco or illicit drug use. No sick contacts or recent travels. Family history is unremarkable. OBJECTIVE: Alert Vital Signs Period Temp Pulse Resp BP Sys/Vidal Pulse Ox Last 24 Hr 97.4 F-98.3 F 67-69 18-20 114-139/73-94 98-99 HEENT: No Jaundice, eye redness or discharge, PERRLA, EOMI. Normocephalic, atraumatic. External ears are normal and hearing is grossly intact. No nasal discharge. Neck: Supple, nontender. No palpable adenopathy or thyromegaly. No JVD Chest: Good effort. Clear to auscultation and percussion. Heart: Regular. No S3, rub or murmur Abdomen: Not distended, soft, epigastric tenderness and no HSM. No rebound or guarding. Normal bowel sounds. Ext: Peripheral pulses intact. No leg edema. Skin: Warm and dry. No petechiae, rash or ecchymosis. Neuro: Alert. Oriented x3. CN 2-12 grossly intact. Sensation grossly intact in all four extremities and DTR are symmetric. Psych: Appropriate mood and affect. Good insight. Current Medications Generic Name Dose Route Start Last Admin Trade Name Александр PRN Reason Stop Dose Admin Lactated Ringer's 1,000 mls @ 83 mls/hr 05/07/20 06:15 Lactated Ringers Solution IV ASDIR ABILIO Home Medications Medication Instructions Recorded Ferrous Sulfate [Iron] 325 mg PO DAILY 03/03/20 Insulin Detemir [Levemir Flextouch] 62 unit SQ HS 03/03/20 Prenat 115/Iron Fum/Folic/Dss 1 tab PO DAILY 03/03/20 [ 19 Tablet] Ibuprofen [Motrin -] 600 mg PO QID #60 tablet 03/05/20 Oxycodone HCl/Acetaminophen 1 tab PO Q6H #5 tablet MDD 4 03/05/20 [Percocet 5-325 mg Tablet] Ciprofloxacin HCl 500 mg PO BID #10 tablet 05/03/20 metroNIDAZOLE [Flagyl -] 500 mg PO TID 5 Days #15 tablet 05/03/20 Famotidine [Pepcid -] 40 mg PO DAILY #14 tablet 05/05/20 Abnormal Lab Results 05/07/20 05/07/20 05/07/20 00:05 00:05 05:44 WBC 11.2 H Anion Gap 7 L Total Bilirubin 1.7 H AST 175 H ALT 420 H Alkaline Phosphatase 268 H Total Protein 8.3 H Urine Protein 1+ H Urine Blood 3+ H Urine Bilirubin 1+ H Ur Leukocyte Esterase 1+ H ASSESSMENT AND PLAN: 1. Symptomatic cholelithiasis - Repeat abdominal sonograms show gall stone, no dilatation of CBD or evidence of cholecystitis. Will keep her NPO, get MRCP, blood cultures, urinalysis, hepatitis serology, NH3 level, trend LFTs, use IV Morphine for pain control, treat with IV LR, IV Levofloxacin and Flagyl, consult GI and Surgery. Viral testing for COVID-19 ordered and patient placed on airborne, droplet and contact isolation. EKG shows NSR at 65/minute and QTc with no significant ST-T wave changes. Will continue comprehensive care for all of pa tients comorbid conditions. 2. Obesity Counseled on the risks associated with obesity. Will provide patient all the necessary assistance, counseling and positive reinforcement to facilitate weight loss. Consult floor plan adjuster. 3. DVT prophylaxis - SCD 4. Advance directives - Full code
--- NOTE | 2020-05-07 06:09 | HP ---
CHIEF COMPLAINT: abdominal pain HISTORY OF PRESENT ILLNESS: 29 female (primigravid c/s 2 months ago) PMH cholecystitis and obesity c/o upper abdominal pain. The pain is located in the BL upper quadrants/greater RUQ, started yesyerday is sharp, on/off course, radiates to back and 8/10 when present (now not complaining of pain). This has happened in the past. An exacerbating factor is fatty foods. She has h/o hepatomegaly. She denies any association with recent surgery. Denies LARA, SOB, CP, FNVD, joint pain (outside of chronic lower back pain). ER course was notable for: (1) US demonstrates cbd 0.5cm (2) Surgery consulted Recent Travel: denies PAST MEDICAL HISTORY: cholecystitis, obesity, slipped lumbar disc PAST SURGICAL HISTORY: 02/2020, lipoma removal from head Fam hx: Mother with pancreatic cancer, father 2/2 colon cancer. 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 [place] Recently , post-, newly wed 1 year ago Allergies bismuth subsalicylate [From Pepto-Bismol] Allergy (Severe, Verified 05/03/20 06:37): Swelling Penicillins Adverse Reaction (Severe, Verified 05/03/20 06:37): Swelling HOME MEDICATIONS: Medication Instructions Recorded Ferrous Sulfate [Iron] 325 mg PO DAILY 03/03/20 Insulin Detemir [Levemir Flextouch] 62 unit SQ HS 03/03/20 Prenat 115/Iron Fum/Folic/Dss 1 tab PO DAILY 03/03/20 [ 19 Tablet] Ibuprofen [Motrin -] 600 mg PO QID #60 tablet 03/05/20 Oxycodone HCl/Acetaminophen 1 tab PO Q6H #5 tablet MDD 4 03/05/20 [Percocet 5-325 mg Tablet] Ciprofloxacin HCl 500 mg PO BID #10 tablet 05/03/20 metroNIDAZOLE [Flagyl -] 500 mg PO TID 5 Days #15 tablet 05/03/20 Famotidine [Pepcid -] 40 mg PO DAILY #14 tablet 05/05/20 REVIEW OF SYSTEMS CONSTITUTIONAL: Absent: fever, chills, diaphoresis, generalized weakness, malaise, loss of appetite, weight change HEENT: Absent: rhinorrhea, nasal congestion, throat pain, throat swelling, difficulty swallowing, mouth swelling, ear pain, eye pain, visual changes CARDIOVASCULAR: Absent: chest pain, syncope, palpitations, irregular heart rate, lightheadedness, peripheral edema RESPIRATORY: Absent: cough, shortness of breath, dyspnea with exertion, orthopnea, wheezing, stridor, hemoptysis GASTROINTESTINAL: Absent: abdominal pain, abdominal distension, nausea, vomiting, diarrhea, constipation, melena, hematochezia GENITOURINARY: Absent: dysuria, frequency, urgency, hesitancy, hematuria, flank pain, genital pain MUSCULOSKELETAL: Absent: myalgia, arthralgia, joint swelling, back pain, neck pain SKIN: Absent: rash, itching, pallor HEMATOLOGIC/IMMUNOLOGIC: Absent: easy bleeding, easy bruising, lymphadenopathy, frequent infections ENDOCRINE: Absent: unexplained weight gain, unexplained weight loss, heat intolerance, cold intolerance NEUROLOGIC: Absent: headache, focal weakness or paresthesias, dizziness, unsteady gait, seizure, mental status changes, bladder or bowel incontinence PSYCHIATRIC: Absent: anxiety, depression, suicidal or homicidal ideation, hallucinations. PHYSICAL EXAMINATION Vital Signs - 24 hr 05/06/20 05/07/20 05/07/20 23:43 00:25 04:41 Temperature 97.4 F L 98.3 F 97.8 F Pulse Rate 69 Pulse Rate [ 67 66 Apical] Respiratory 20 18 17 Rate Blood Pressure 139/94 Blood Pressure 114/73 126/75 [Right Arm] O2 Sat by Pulse 99 98 100 Oximetry (%) GENERAL: Awake, alert, and fully oriented, in no acute distress. HEAD: Normal with no signs of trauma. EYES: Pupils equal, round and reactive to light, extraocular movements intact, sclera anicteric, conjunctiva clear. No lid lag. EARS, NOSE, THROAT: Ears normal, nares patent, oropharynx clear without exudates. Moist mucous membranes. NECK: Normal range of motion, supple without lymphadenopathy, JVD, or masses. LUNGS: Breath sounds equal, clear to auscultation bilaterally. No wheezes, and no crackles. No accessory muscle use. HEART: Regular rate and rhythm, normal S1 and S2 without murmur, rub or gallop. ABDOMEN: Soft, tender to palpation in epigastrium, non-radiating, sharp not distended, normoactive bowel sounds, no guarding, no rebound, no masses. No hepatomegaly or splenomegaly. MUSCULOSKELETAL: Normal range of motion at all joints. No bony deformities or tenderness. No CVA tenderness. UPPER EXTREMITIES: 2+ pulses, warm, well-perfused. No cyanosis. No clubbing. No peripheral edema. LOWER EXTREMITIES: 2+ pulses, warm, well-perfused. No calf tenderness. No peripheral edema. NEUROLOGICAL: Cranial nerves II-XII intact. Normal speech. Normal gait. PSYCHIATRIC: Cooperative. Good eye contact. Appropriate mood and affect. SKIN: Warm, dry, normal turgor, no rashes or lesions noted, normal capillary refill. Laboratory Results - last 24 hr 05/07/20 05/07/20 05/07/20 00:05 00:05 00:05 WBC 11.2 H RBC 4.90 Hgb 13.7 Hct 42.2 MCV 86.2 MCH 28.0 MCHC 32.5 RDW 13.6 Plt Count 394 MPV 8.0 Absolute Neuts (auto) 7.4 Neutrophils % 66.3 Lymphocytes % 25.1 Monocytes % 6.2 Eosinophils % 1.8 Basophils % 0.6 Nucleated RBC % 0 PT with INR 11.30 INR 0.96 PTT (Actin FS) 36.2 Sodium 136 Potassium 3.9 Chloride 104 Carbon Dioxide 25 Anion Gap 7 L BUN 16.9 Creatinine 1.0 Est GFR (CKD-EPI)AfAm 87.55 Est GFR (CKD-EPI)NonAf 75.54 Random Glucose 90 Calcium 9.8 Total Bilirubin 1.7 H AST 175 H ALT 420 H Alkaline Phosphatase 268 H Total Protein 8.3 H Albumin 4.3 Lipase 174 ASSESSMENT/PLAN: 29 female (primigravid c/s 2 months ago) PMH cholecystitis and obesity c/o upper abdominal pain and US evidence of choledocholithiasis. # Choledocholithiasis - WBC^ 11.2 - AlkPhos^ 264 - Surgical ppx: Levofloxacin 500 mg IV x1 /flagy 500 mg IV x1 - Surgery consulted - GI consulted - IVF: LR at 83 - Pain management per surgery, avoid drugs metabolized by liver - NPO - recommend MRCP # Transaminitis - AST/ALT 175/420 - Hepatitis serology # Hematuria - 3+ urine blood - Menses have yet to return - Further assessment post-op as appropriate # Obesity - Education on diet/exercise - Refer to training manager # DVT ppx - SCD # FEN - LR at 83 - Monitor and replete as appropriate - NPO # Disposition - Admit to med/surg Visit type - Emergency Visit Emergency Visit: No - New Patient This patient is new to me today: Yes Date on this admission: 05/07/20 - Critical Care Critical Care patient: No ATTENDING PHYSICIAN STATEMENT I saw and evaluated the patient. I reviewed the resident's note and discussed the case with the resident. I agree with the resident's findings and plan as documented. SUBJECTIVE: OBJECTIVE: ASSESSMENT AND PLAN:
[2020-05-07 06:10] LABS: EPI CELLS 20 /uL (0-25.1); HYALINE CASTS 1 /uL (0-3.1); URINE APPEARANCE CLEAR; URINE BACTERIA 32 /uL (0-1359); URINE BILIRUBIN 1+ (NEGATIVE); URINE COLOR ORANGE; URINE GLUCOSE (UA) NEGATIVE (NEGATIVE); URINE KETONE NEGATIVE (NEGATIVE); URINE LEUK ESTERASE 1+ (NEGATIVE); URINE NITRITE NEGATIVE (NEGATIVE); URINE PROTEIN 1+ (NEGATIVE); URINE RBC 12399 /uL (0-23.9); URINE WBC 41 /uL (0-25.8)
[2020-05-07 06:12] LABS: HCG,QUALITATIVE URINE Negative
[2020-05-07] MEDS ORDERED: LACTATED RINGERS SOLUTION 1,000 ML IV SCH (06:15)
--- NOTE | 2020-05-07 08:13 | CONSULT ---
<EllieCassius P - Last Filed: 05/07/20 08:16> - Consultation REQUESTING PROVIDER: General Surgery - Martín Constantino CONSULT REQUEST: We have been asked to surgically evaluate this patient for symptomatic cholelithiasis PCP: Brianne Dyer HISTORY OF PRESENT ILLNESS: Called to maria dolores 29 yo female (s/p csxn 2 months ago) with PMHx as noted below. Patient presents to [facility] ED w/ recurrent RUQ abd pain. Has known cholelithiasis. Recent ED visits 05/03/20 & . During both those visits she had an ABD US which confirmed cholecystitis/cholelithiasis. Dr. Contreras was consulted but only documentation I could find was from ER which states they spoke with him and said ok to send patient out on PO abx. Patient has since returned with same complaint. Denies n/v/f/c, CP, palpitations, SOB or MEYERS. Denies change in color of urine (hematuria or tea color). PMHx: cholecystitis, obesity, chronic LBP (slipped disc) PSHx: 02/2020, lipoma removal from head, Csxn Home Medications Ferrous Sulfate [Iron] 325 mg PO DAILY 03/03/20 Insulin Detemir [Levemir Flextouch] 62 unit SQ HS 03/03/20 Prenat 115/Iron Fum/Folic/Dss 1 tab PO DAILY 03/03/20 [ 19 Tablet] Ibuprofen [Motrin -] 600 mg PO QID #60 tablet 03/05/20 Oxycodone HCl/Acetaminophen 1 tab PO Q6H #5 tablet MDD 4 03/05/20 Ciprofloxacin HCl 500 mg PO BID #10 tablet 05/03/20 metroNIDAZOLE [Flagyl -] 500 mg PO TID 5 Days #15 tablet 05/03/20 Famotidine [Pepcid -] 40 mg PO DAILY #14 tablet 05/05/20 Allergies bismuth subsalicylate Allergy Severe Swelling Verified 05/03/20 06:37 Penicillins AdvReac Severe Swelling Verified 05/03/20 06:37 REVIEW OF SYSTEMS: CONSTITUTIONAL: Absent: fever, chills, diaphoresis, generalized weakness, malaise, loss of appetite, weight change CARDIOVASCULAR: Absent: chest pain, syncope, palpitations, irregular heart rate, lightheadedness, peripheral edema RESPIRATORY: Absent: cough, shortness of breath, dyspnea with exertion, wheezing, stridor, hemoptysis GASTROINTESTINAL:Absent: see hpi GENITOURINARY: Absent: dysuria, frequency, urgency, hesitancy,flank pain, genital pain MUSCULOSKELETAL: Absent: myalgia, arthralgia, joint swelling, back pain, neck pain SKIN: Absent: rash, itching, pallor HEMATOLOGIC/IMMUNOLOGIC: Absent: easy bleeding, easy bruising, lymphadenopathy NEUROLOGIC: Absent: headache, focal weakness, paresthesias, dizziness, unsteady gait, seizure, mental status changes, PSYCHIATRIC: Absent: anxiety, depression, suicidal or homicidal ideation, hallucinations. PHYSICAL EXAM: GENERAL: Awake, alert, and fully oriented, in no acute distress. HEAD: Normal with no signs of trauma. EYES: PERRL, sclera anicteric, conjunctiva clear. NECK: Normal ROM, supple without lymphadenopathy, JVD, or masses. LUNGS: Clear to auscultation bilat anteriorly. No wheezes, and no crackles. No accessory muscle use. HEART: Regular rate and rhythm. No murmurs ABDOMEN: Obese habitus. + Menon's MUSCULOSKELETAL: No CVA tenderness. UPPER EXTREMITIES: 2+ pulses, warm, well-perfused. No cyanosis. Cap refill <2 seconds. No peripheral edema. LOWER EXTREMITIES: 2+ pulses, warm, well-perfused. No calf tenderness. No peripheral edema. NEUROLOGICAL: Normal speech, gait not observed. PSYCH: Cooperative. Good eye contact. Appropriate mood and affect. SKIN: Warm, dry, normal turgor, no rashes or lesions noted. Last Vital Signs Temp Pulse Resp BP Pulse Ox 97.2 F L 59 L 20 121/71 97 05/07/20 06:17 05/07/20 06:17 05/07/20 06:17 05/07/20 06:17 05/07/20 06:17 CBC, BMP 05/07/20 00:05 05/07/20 00:05 Hepatic Panel Total Bilirubin 1.7 mg/dL (0.2-1) H 05/07/20 00:05 AST 175 U/L (15-37) H 05/07/20 00:05 ALT 420 U/L (13-61) H 05/07/20 00:05 Alkaline Phosphatase 268 U/L (45-117) H 05/07/20 00:05 Albumin 4.3 g/dl (3.4-5.0) 05/07/20 00:05 Serology Test 05/07/20 04:30 COVID-19 ([place]) Pending INR, PTT INR 0.96 (0.83-1.09) 05/07/20 00:05 Problem List - Problems (1) Symptomatic cholelithiasis Assessment/Plan: 29 yo female with symptomatic cholelithiasis, elevated LFTs, leukocytosis. Repeat abdominal sonograms show gall stone, no dilatation of CBD or evidence of cholecystitis. NPO IVF IV ABX Trend LFTs GI Consult MRCP ordered Recommend Lap Cecilia after GI workup complete Covid pending; isolation precaution Medical optimization/clearance Above plan discussed with Dr. Constantino and agrees. Code(s): K80.20 - CALCULUS OF GALLBLADDER W/O CHOLECYSTITIS W/O OBSTRUCTION (2) Transaminitis Code(s): R74.0 - NONSPEC ELEV OF LEVELS OF TRANSAMNS & LACTIC ACID DEHYDRGNSE (3) Fatty liver Code(s): K76.0 - FATTY (CHANGE OF) LIVER, NOT ELSEWHERE CLASSIFIED Visit type - Case Type Case Type: ED Admission - Emergency Emergency Visit: Yes ED Registration Date: 05/07/20 Care time: The patient presented to the Emergency Department on the above date and was hospitalized for further evaluation of their emergent condition. - New patient This patient is new to me today: Yes Date on this admission: 05/07/20 <Brianne Dyer - Last Filed: 05/07/20 09:21> - Consultation I am not PCP of this patient.
[2020-05-07] MEDS: LACTATED RINGERS SOLUTION 1,000 ML IV SCH (10:19)
[2020-05-07 11:22] LABS: BASO % 0.8 % (0-2.0); EOS % 1.7 % (0-4.5); HEMOGLOBIN 12.7 GM/dL (10.7-15.3); LYMPH % 28.5 % (8-40); MCH 27.9 pg (25.7-33.7); MCHC 32.6 g/dl (32.0-36.0); MEAN CELL VOLUME 85.6 fl (80-96); MEAN PLT VOLUME 7.7 fl (7.5-11.1); MONO % 6.7 % (3.8-10.2); NEUT % 62.3 % (42.8-82.8); PLATELET COUNT 366 K/MM3 (134-434); RBC 4.55 M/mm3 (3.60-5.2); RDW 13.7 % (11.6-15.6); WHITE BLOOD COUNT 5.9 K/mm3 (4.0-10.0)
--- NOTE | 2020-05-07 11:27 | EKG ---
Test Reason : Blood Pressure : / mmHG Vent. Rate : 065 BPM Atrial Rate : 065 BPM P-R Int : 144 ms QRS Dur : 080 ms QT Int : 418 ms P-R-T Axes : 041 045 057 degrees QTc Int : 434 ms NORMAL SINUS RHYTHM NORMAL ECG WHEN COMPARED WITH ECG OF 05-MAY-2020 00:31, NO SIGNIFICANT CHANGE WAS FOUND Confirmed by MARTIN SHETTY MD ([id number]) on 05/07/2020 11:27:26 AM Referred By: Confirmed By:MARTIN SHETTY MD
[2020-05-07 11:46] LABS: BILIRUBIN,TOTAL 1.6 mg/dL (0.2-1); BLOOD UREA NITROGEN 14.4 mg/dL (7-18); CALCIUM 9.7 mg/dL (8.5-10.1); CREATININE 0.7 mg/dL (0.55-1.3); MAGNESIUM 2.2 mg/dL (1.8-2.4); POTASSIUM 4.4 mmol/L (3.5-5.1); TOT PROT 7.8 g/dl (6.4-8.2)
--- NOTE | 2020-05-07 14:33 | CON.GI ---
Consult Consult Specialty:: GI Referred by:: Hospitalist Service Reason for Consultation:: Biliary colic - History of Present Illness Chief Complaint: Abdominal pain History of Present Illness: 29F with two episodes of post prandial pain epigastric pain radiating to the back along with associated nausea (seen in ER after both episodes, sent home for outpatient evaluation) and a third episode of pain while eating last night prom pting a third ER visit. She was admitted. LFTs were noted elevated during the previous episodes elevated ALP/bilirubin, mild transaminitis. liver chemistries have continued to rise. Lipase was normal. No recent blood work in [facility] to compare, however these were normal in 2016. Abdominal US x 2 prior to admission revealed hepatomegaly, fatty liver, gallstones and non dilated biliary tract. No pain currently. No episodes prior to this past monday. Denies significant alcohol use, current medication use, OTC meds, herbal supplements, known exposure to viral hepatitides, IVDU, blood transfusions. No EGD / colonoscopy in the past. - History Source History Provided By: Patient, Medical Record Limitations to Obtaining History: No Limitations - Past Medical History Pulmonary: Yes: Asthma (exertional) Hepatobiliary: Yes: Cholelithiasis ...LMP: 02/06/18 Musculoskeletal: Yes: Other (Lumbar discogenic disease, "chippped" lumbar vertebra) Endocrine: Yes: Diabetes Mellitus (gestational, states no longer being on insulin) - Past Surgical History Past Surgical History: Yes: Additional Surgical History: reconstruction of jaw age 15 - Alcohol/Substance Use Hx Alcohol Use: Yes (social) History of Substance Use: reports: None - Smoking History Smoking history: Never smoked Have you smoked in the past 12 months: No - Social History Usual Living Arrangement: With Spouse ADL: Independent Occupation: Stay at home mother Place of : [facility] History of Recent Travel: No Home Medications - Allergies Allergies/Adverse Reactions: Allergies Allergy/AdvReac Type Severity Reaction Status Date / Time bismuth subsalicylate Allergy Severe Swelling Verified 05/03/20 06:37 [From Pepto-Bismol] Penicillins AdvReac Severe Swelling Verified 05/03/20 06:37 - Home Medications Home Medications: Ambulatory Orders NK [No Known Home Medication] 05/07/20 Family Medical History Family Hx Cancer: Mother (Colon cancer in 60's), Father (: 63: pancreatic ca) Other Family History: Sister: ITP, endometriosis, firbomyalgia Review of Systems - Review of Systems Constitutional: denies: Chills, Fever, Unintentional Wgt. Loss Cardiovascular: reports: Chest Pain (epigastric pain radiating to chest) Gastrointestinal: reports: Abdominal Pain, Indigestion, Nausea. denies: Constipation, Diarrhea, Dysphagia, Rectal Bleeding Physical Exam-GI Vital Signs: Vital Signs Temperature 98.1 F 05/07/20 09:50 Pulse Rate 65 05/07/20 12:00 Respiratory Rate 18 05/07/20 13:17 Blood Pressure 110/74 05/07/20 12:00 O2 Sat by Pulse Oximetry (%) 100 05/07/20 13:17 Constitutional: Yes: Calm Eyes: No: Sclera Icterus Cardiovascular: Yes: Regular Rate and Rhythm Respiratory: Yes: CTA Bilaterally Gastrointestinal Inspection: Yes: Scars (decorative umbilical scar), Other (abdominal wall striae). No: Distention ...Auscultate: Yes: Normoactive Bowel Sounds ...Palpate: No: Hepatomegaly, Splenomegaly ...Percussion: No: Tympanitic Edema: No (No LE edema) Neurological: Yes: Alert, Oriented Labs: CBC, BMP 05/07/20 10:45 05/07/20 10:45 INR, PTT INR 0.96 (0.83-1.09) 05/07/20 00:05 Hepatic Panel Total Bilirubin 1.6 mg/dL (0.2-1) H 05/07/20 10:45 AST 638 U/L (15-37) H 05/07/20 10:45 ALT 816 U/L (13-61) H 05/07/20 10:45 Alkaline Phosphatase 316 U/L (45-117) H 05/07/20 10:45 Albumin 4.0 g/dl (3.4-5.0) 05/07/20 10:45 Problem List - Problems (1) Biliary colic Assessment/Plan: recurrent biliary colic over the last few days. With rising LFT's in obstructive pattern, passage or retention of CBD stones would need to be considered in the differential. Advise: NPO except meds IV hydration IV Abx: reordered standing Levaquin 500mg IVPB daily and Flagyl 500mg IVPB Q8H Agree with MRCP Monitor LFTs / CBC Ordered coags for AM Discussed the possibility of ERCP with Lyssa for further evaluation of the biliary tract / stone extraction / stent placement i necessary. Discussed pot ential risks of the procedure like but not limited to bleeding, perforation requiring surgery to repair, infection, sedation medication effects, pancreatitis, all of which could be potentially life threatening. She has agreed to the procedure if felt to be clinically necessary. Explained that [facility] endoscopist Dr. Jenny Fuentes would be performing the procedure. Problems reviewed: Yes Code(s): K80.50 - CALCULUS OF BILE DUCT W/O CHOLANGITIS OR CHOLECYST W/O OBST
[2020-05-07 14:42] VITALS: BMI 31.7
[2020-05-07] MEDS ORDERED: LORazepam 2 MG/ML SDV VIAL IVPUSH ONE (15:12)
--- NOTE | 2020-05-07 15:27 | PN ---
Physical Exam: SUBJECTIVE: Patient seen and examined in the ED. No acute distress. Reports feeling much better. Denies n/v/d. OBJECTIVE: Vital Signs - 8 hr 05/07/20 05/07/20 09:50 12:00 Temperature 98.1 F Pulse Rate Pulse Rate [ 59 L 65 Left Radial] Respiratory 18 18 Rate Blood Pressure Blood Pressure 119/77 110/74 [Right Arm] O2 Sat by Pulse 100 Oximetry (%) 05/07/20 05/07/20 13:17 14:37 Temperature 98.9 F Pulse Rate 56 L Pulse Rate [ Left Radial] Respiratory 18 18 Rate Blood Pressure 132/75 Blood Pressure [Right Arm] O2 Sat by Pulse 100 100 Oximetry (%) GENERAL: The patient is awake, alert, and fully oriented, in no acute distress. HEAD: Normal with no signs of trauma. EYES: PERRL, extraocular movements intact, sclera anicteric, conjunctiva clear. ENT: moist mucous membranes. LUNGS: Breath sounds equal, clear to auscultation bilaterally HEART: Regular rate and rhythm, S1, S2 ABDOMEN: Soft, nondistended, negative ornelas's sign, only slight tenderness/discomfort to deep palpation of RUQ. Minimal scar from . Notable striae EXTREMITIES: warm, well-perfused, no edema. NEUROLOGICAL: Cranial nerves II through XII grossly intact. Normal speech PSYCH: Normal mood, normal affect. SKIN: Warm, dry, normal turgor, no rashes or lesions noted Laboratory Results - last 24 hr 05/07/20 05/07/20 05/07/20 00:05 00:05 00:05 WBC 11.2 H RBC 4.90 Hgb 13.7 Hct 42.2 MCV 86.2 MCH 28.0 MCHC 32.5 RDW 13.6 Plt Count 394 MPV 8.0 Absolute Neuts (auto) 7.4 Neutrophils % 66.3 Lymphocytes % 25.1 Monocytes % 6.2 Eosinophils % 1.8 Basophils % 0.6 Nucleated RBC % 0 PT with INR 11.30 INR 0.96 PTT (Actin FS) 36.2 Sodium 136 Potassium 3.9 Chloride 104 Carbon Dioxide 25 Anion Gap 7 L BUN 16.9 Creatinine 1.0 Est GFR (CKD-EPI)AfAm 87.55 Est GFR (CKD-EPI)NonAf 75.54 Random Glucose 90 Hemoglobin A1c % Calcium 9.8 Phosphorus Magnesium Total Bilirubin 1.7 H AST 175 H ALT 420 H Alkaline Phosphatase 268 H Total Protein 8.3 H Albumin 4.3 Lipase 174 Urine Color Urine Appearance Urine pH Ur Specific [place] Urine Protein Urine Glucose (UA) Urine Ketones Urine Blood Urine Nitrite Urine Bilirubin Urine Urobilinogen Ur Leukocyte Esterase Urine WBC (Auto) Urine RBC (Auto) Urine Casts (Auto) U Epithel Cells (Auto) Urine Bacteria (Auto) Urine HCG, Qual Blood Type Antibody Screen 05/07/20 05/07/20 05/07/20 05:44 10:45 10:45 WBC 5.9 RBC 4.55 Hgb 12.7 Hct 39.0 MCV 85.6 MCH 27.9 MCHC 32.6 RDW 13.7 Plt Count 366 MPV 7.7 Absolute Neuts (auto) 3.7 Neutrophils % 62.3 Lymphocytes % 28.5 Monocytes % 6.7 Eosinophils % 1.7 Basophils % 0.8 Nucleated RBC % 0 PT with INR INR PTT (Actin FS) Sodium 138 Potassium 4.4 Chloride 107 Carbon Dioxide 25 Anion Gap 6 L BUN 14.4 Creatinine 0.7 Est GFR (CKD-EPI)AfAm 134.75 Est GFR (CKD-EPI)NonAf 116.26 Random Glucose 92 Hemoglobin A1c % Calcium 9.7 Phosphorus 4.0 Magnesium 2.2 Total Bilirubin 1.6 H AST 638 H ALT 816 H Alkaline Phosphatase 316 H Total Protein 7.8 Albumin 4.0 Lipase Urine Color [place] Urine Appearance Clear Urine pH 5.0 Ur Specific [place] 1.026 Urine Protein 1+ H Urine Glucose (UA) Negative Urine Ketones Negative Urine Blood 3+ H Urine Nitrite Negative Urine Bilirubin 1+ H Urine Urobilinogen 1.0 Ur Leukocyte Esterase 1+ H Urine WBC (Auto) 41 Urine RBC (Auto) 58617 Urine Casts (Auto) 1 U Epithel Cells (Auto) 20 Urine Bacteria (Auto) 32 Urine HCG, Qual Negative Blood Type Antibody Screen 05/07/20 05/07/20 10:45 10:45 WBC RBC Hgb Hct MCV MCH MCHC RDW Plt Count MPV Absolute Neuts (auto) Neutrophils % Lymphocytes % Monocytes % Eosinophils % Basophils % Nucleated RBC % PT with INR INR PTT (Actin FS) Sodium Potassium Chloride Carbon Dioxide Anion Gap BUN Creatinine Est GFR (CKD-EPI)AfAm Est GFR (CKD-EPI)NonAf Random Glucose Hemoglobin A1c % 5.6 Calcium Phosphorus Magnesium Total Bilirubin AST ALT Alkaline Phosphatase Total Protein Albumin Lipase Urine Color Urine Appearance Urine pH Ur Specific [place] Urine Protein Urine Glucose (UA) Urine Ketones Urine Blood Urine Nitrite Urine Bilirubin Urine Urobilinogen Ur Leukocyte Esterase Urine WBC (Auto) Urine RBC (Auto) Urine Casts (Auto) U Epithel Cells (Auto) Urine Bacteria (Auto) Urine HCG, Qual Blood Type O POSITIVE Antibody Screen Negative Active Medications Generic Name Dose Route Start Last Admin Trade Name Maxq PRN Reason Stop Dose Admin Lactated Ringer's 1,000 mls @ 150 mls/hr 05/07/20 09:35 05/07/20 10:19 Lactated Ringers Solution IV 05/08/20 12:54 150 mls/hr ASDIR ABILIO Administration Levofloxacin 500 mg in 100 mls @ 100 mls/hr 05/08/20 10:00 Levaquin 500 Mg Premixed Ivpb - IVPB DAILY ABILIO Protocol Metronidazole 500 mg in 100 mls @ 100 mls/hr 05/07/20 18:00 Flagyl 500mg Premixed Ivpb - IVPB Q8H-IV ABILIO IMAGING: Abdominal US: Real time examination of the abdomen demonstrates the following: The gallbladder is normal in size and does contain small calculi. There is no evidence of intra or extrahepatic biliary duct dilatation. The liver is enlarged measuring 20.6 cm in craniocaudad dimension. It is hypoechoic in texture consistent with diffuse fatty infiltration. No discrete intrahepatic masses are identified. Hepatopedal flow is documented within the main portal vein. The pancreas is normal in size and texture with no pancreatic masses identified. The tail of the pancreas was not well visualized due to overlying bowel gas. There is no evidence of hydronephrosis or acute abnormalities of the right kidney. There is no evidence of AAA. The IVC is patent. IMPRESSION: 1. Cholelithiasis. 2. Hepatomegaly with diffuse fatty infiltration of liver. ASSESSMENT/PLAN: 29 yo Female, , s/p 2 months ago, only PMHx of gestational diabetes, currently on no medications, presented to the ED for the 3rd time in a week for upper abdominal pain. Has worsening transaminitis since her first ED visit. Admitted to the hospital with cholielithiasis/possible choledocholithiasis for MRCP/ERCP and possible Lap dona. Cholielithiasis/Choledocholithiasis Gi consulted (Dr. Hill) restart Levofloxacin 500 mg IV flagy 500 mg IV q8H coags for AM LR 150 ml/hr Patient agreed to ERCP - Surgery consulted (Dr. Constantino) possible Lap Dona pending ERCP - NPO Transaminitis - continues to elevate - monitor with LFTs - Hepatitis serology - fatty liver on US Hematuria - 3+ urine blood - Menses have yet to return - Further assessment post-op as appropriate - repeat UA Hx Gestational Diabetes - not on medications since having baby - HbA1c 5.6 DVT ppx - SCD FEN - Monitor and replete as appropriate - NPO - LR 150 ml/hr - Covid pending Visit type - Emergency Visit Emergency Visit: Yes ED Registration Date: 05/07/20 Care time: The patient presented to the Emergency Department on the above date and was hospitalized for further evaluation of their emergent condition. - New Patient This patient is new to me today: Yes Date on this admission: 05/07/20 - Critical Care Critical Care patient: No - Discharge Referral Referred to [facility] Med P.C.: No ATTENDING PHYSICIAN STATEMENT I saw and evaluated the patient. I reviewed the resident's note and discussed the case with the resident. I agree with the resident's findings and plan as documented. SUBJECTIVE: OBJECTIVE: ASSESSMENT AND PLAN:
--- NOTE | 2020-05-07 17:38 | PN ---
Teaching Attending Note Name of Resident: Yani Vargas ATTENDING PHYSICIAN STATEMENT I saw and evaluated the patient. I reviewed the resident's note and discussed the case with the resident. I agree with the resident's findings and plan as documented. SUBJECTIVE: Patient stated that this is the 3rd ED. visit yesterday , had a baby 2 months ago. No fever or chills. OBJECTIVE: Vital Signs Temperature 98.9 F 05/07/20 15:00 Pulse Rate 56 L 05/07/20 14:37 Respiratory Rate 18 05/07/20 14:37 Blood Pressure 132/75 05/07/20 14:37 O2 Sat by Pulse Oximetry (%) 100 05/07/20 14:37 PE: per resident's note No abdominal pain on palpation CBCD WBC 5.9 K/mm3 (4.0-10.0) 05/07/20 10:45 RBC 4.55 M/mm3 (3.60-5.2) 05/07/20 10:45 Hgb 12.7 GM/dL (10.7-15.3) 05/07/20 10:45 Hct 39.0 % (32.4-45.2) 05/07/20 10:45 MCV 85.6 fl (80-96) 05/07/20 10:45 MCHC 32.6 g/dl (32.0-36.0) 05/07/20 10:45 RDW 13.7 % (11.6-15.6) 05/07/20 10:45 Plt Count 366 K/MM3 (134-434) 05/07/20 10:45 MPV 7.7 fl (7.5-11.1) 05/07/20 10:45 CMP Sodium 138 mmol/L (136-145) 05/07/20 10:45 Potassium 4.4 mmol/L (3.5-5.1) 05/07/20 10:45 Chloride 107 mmol/L (98-107) 05/07/20 10:45 Carbon Dioxide 25 mmol/L (21-32) 05/07/20 10:45 Anion Gap 6 MMOL/L (8-16) L 05/07/20 10:45 BUN 14.4 mg/dL (7-18) 05/07/20 10:45 Creatinine 0.7 mg/dL (0.55-1.3) 05/07/20 10:45 Random Glucose 92 mg/dL (74-106) 05/07/20 10:45 Calcium 9.7 mg/dL (8.5-10.1) 05/07/20 10:45 Total Bilirubin 1.6 mg/dL (0.2-1) H 05/07/20 10:45 AST 638 U/L (15-37) H 05/07/20 10:45 ALT 816 U/L (13-61) H 05/07/20 10:45 Alkaline Phosphatase 316 U/L (45-117) H 05/07/20 10:45 Total Protein 7.8 g/dl (6.4-8.2) 05/07/20 10:45 Albumin 4.0 g/dl (3.4-5.0) 05/07/20 10:45 Current Medications Generic Name Dose Route Start Last Admin Trade Name Freq PRN Reason Stop Dose Admin Lactated Ringer's 1,000 mls @ 150 mls/hr 05/07/20 09:35 05/07/20 10:19 Lactated Ringers Solution IV 05/08/20 12:54 150 mls/hr ASDIR ABILIO Administration Levofloxacin 500 mg in 100 mls @ 100 mls/hr 05/08/20 10:00 Levaquin 500 Mg Premixed Ivpb - IVPB DAILY ABILIO Protocol Metronidazole 500 mg in 100 mls @ 100 mls/hr 05/07/20 18:00 05/07/20 17:02 Flagyl 500mg Premixed Ivpb - IVPB 100 mls/hr Q8H-IV ABILIO Administration Home Medications Medication Instructions Recorded NK [No Known Home Medication] 05/07/20 Echo: normal US of abdomen and pelvis: cholelithiasis, hepatomegaly with diffuse fatty infiltration of liver ASSESSMENT AND PLAN: This patient is a 29yof with Pmhx of gestational diabetes, s/p 2 months ago admitted for having an abdominal pain and this is her 3rd visit in ED. for possible cholecystitis for lap. chol. #Biliary Colic with elevated LFTs with bilirubin /obstructive pattern cannot r/o CBD stone and obstruction : patient needs MRCP and possible ERCP , NPO/IVF/IV antibiotic flagyl/levaquin since allergic to PCN, GI consult and surgical consult appreciated. trend the labs. DVT px: SCds for now
[2020-05-08] MEDS: LACTATED RINGERS SOLUTION 1,000 ML IV SCH ×3 (00:42→17:26)
[2020-05-08 07:28] LABS: BASO % 0.7 % (0-2.0); EOS % 3.4 % (0-4.5); HEMOGLOBIN 12.4 GM/dL (10.7-15.3); LYMPH % 39.7 % (8-40); MCH 28.2 pg (25.7-33.7); MCHC 32.7 g/dl (32.0-36.0); MEAN PLT VOLUME 8.1 fl (7.5-11.1); MONO % 5.7 % (3.8-10.2); NEUT % 50.5 % (42.8-82.8); PLATELET COUNT 320 K/MM3 (134-434); RBC 4.42 M/mm3 (3.60-5.2); RDW 14.1 % (11.6-15.6); WHITE BLOOD COUNT 6.9 K/mm3 (4.0-10.0)
[2020-05-08 07:29] LABS: HEMATOCRIT 38.2 % (32.4-45.2); HEMOGLOBIN 12.5 GM/dL (10.7-15.3); MCH 28.3 pg (25.7-33.7); MCHC 32.8 g/dl (32.0-36.0); MEAN CELL VOLUME 86.5 fl (80-96); MEAN PLT VOLUME 7.7 fl (7.5-11.1); PLATELET COUNT 320 K/MM3 (134-434); RBC 4.42 M/mm3 (3.60-5.2)
[2020-05-08 07:34] LABS: INR 1.12 (0.83-1.09); PROTHROMBIN TIME (PATIENT) 13.2 SEC (9.7-13.0)
[2020-05-08 07:37] LABS: ACTIVATED PTT 34.8 SECONDS (25.2-36.5)
[2020-05-08 07:52] LABS: ALBUMIN 3.5 g/dl (3.4-5.0); BILIRUBIN,TOTAL 1.7 mg/dL (0.2-1); BLOOD UREA NITROGEN 9.4 mg/dL (7-18); CREATININE 0.7 mg/dL (0.55-1.3); PHOSPHOROUS 4.5 mg/dL (2.5-4.9); POTASSIUM 4.2 mmol/L (3.5-5.1); TOT PROT 6.7 g/dl (6.4-8.2)
--- NOTE | 2020-05-08 08:35 | PN ---
Progress Note (short form) - Note Progress Note: No acute events overnight. Improvement in liver chemistries. MRCP premilinarily read as normal appearing biliary tract with stones in fundus of gallbladder. Spoke with Dr. Fuentes. Deferring ERCP at this time, however will await official read oc MRCP. Called Dr. Peacock. He will read the MRCP when he gets to the hospital. For now, keep NPO. Problem List - Problems (1) Biliary colic Code(s): K80.50 - CALCULUS OF BILE DUCT W/O CHOLANGITIS OR CHOLECYST W/O OBST
--- NOTE | 2020-05-08 08:51 | SPA.PREOP ---
- PRE-OP NOTE Dx: Planned Procedure: Surgeon: Last Vital Signs Temp Pulse Resp BP Pulse Ox 97.8 F 59 L 18 144/82 100 05/08/20 07:30 05/08/20 07:30 05/08/20 07:30 05/08/20 07:30 05/08/20 07:30 Lab Results WBC 6.9 K/mm3 (4.0-10.0) 05/08/20 06:30 WBC 7.0 K/mm3 (4.0-10.0) 05/08/20 06:30 RBC 4.42 M/mm3 (3.60-5.2) 05/08/20 06:30 RBC 4.42 M/mm3 (3.60-5.2) 05/08/20 06:30 Hgb 12.4 GM/dL (10.7-15.3) 05/08/20 06:30 Hgb 12.5 GM/dL (10.7-15.3) 05/08/20 06:30 Hct 38.0 % (32.4-45.2) 05/08/20 06:30 Hct 38.2 % (32.4-45.2) 05/08/20 06:30 MCV 86.0 fl (80-96) 05/08/20 06:30 MCV 86.5 fl (80-96) 05/08/20 06:30 MCHC 32.7 g/dl (32.0-36.0) 05/08/20 06:30 MCHC 32.8 g/dl (32.0-36.0) 05/08/20 06:30 RDW 14.0 % (11.6-15.6) 05/08/20 06:30 RDW 14.1 % (11.6-15.6) 05/08/20 06:30 Plt Count 320 K/MM3 (134-434) 05/08/20 06:30 Plt Count 320 K/MM3 (134-434) 05/08/20 06:30 INR 1.12 (0.83-1.09) H 05/08/20 06:30 Sodium 140 mmol/L (136-145) 05/08/20 06:30 Potassium 4.2 mmol/L (3.5-5.1) 05/08/20 06:30 Chloride 107 mmol/L (98-107) 05/08/20 06:30 Carbon Dioxide 22 mmol/L (21-32) 05/08/20 06:30 Anion Gap 10 MMOL/L (8-16) 05/08/20 06:30 BUN 9.4 mg/dL (7-18) 05/08/20 06:30 Creatinine 0.7 mg/dL (0.55-1.3) 05/08/20 06:30 Random Glucose 76 mg/dL (74-106) 05/08/20 06:30 Calcium 9.0 mg/dL (8.5-10.1) 05/08/20 06:30 Blood Type O POSITIVE 05/07/20 10:45 Antibody Screen Negative 05/07/20 10:45 - ASSESSMENT/PLAN 1. Make NPO after midnight except po meds 2. GI/DVT PPX 3. Medical optimization / clearance 4. Consent to be obtained by surgeon after risks, benefits and alternatives discussed with patient and or Health Care Proxy. Problem List - Problems (1) Symptomatic cholelithiasis Code(s): K80.20 - CALCULUS OF GALLBLADDER W/O CHOLECYSTITIS W/O OBSTRUCTION (2) Transaminitis Code(s): R74.0 - NONSPEC ELEV OF LEVELS OF TRANSAMNS & LACTIC ACID DEHYDRGNSE (3) Fatty liver Code(s): K76.0 - FATTY (CHANGE OF) LIVER, NOT ELSEWHERE CLASSIFIED
--- NOTE | 2020-05-08 08:53 | PN ---
Progress Note (short form) - Note Progress Note: GENERAL SURGERY Patient scheduled for ERCP this morning wit Dr. Fuentes. He canceled the procedure based on negative findings on MRCP. OR notified and will take patient for lap dona, possible open, possible intraop cholangiogram at 11AM. Problem List - Problems (1) Symptomatic cholelithiasis Code(s): K80.20 - CALCULUS OF GALLBLADDER W/O CHOLECYSTITIS W/O OBSTRUCTION (2) Transaminitis Code(s): R74.0 - NONSPEC ELEV OF LEVELS OF TRANSAMNS & LACTIC ACID DEHYDRGNSE (3) Fatty liver Code(s): K76.0 - FATTY (CHANGE OF) LIVER, NOT ELSEWHERE CLASSIFIED
[2020-05-08] MEDS ORDERED: BUPIVACAINE HCL 100 ML ONE (11:49)
[2020-05-08] MEDS ORDERED: PROPOFOL 20 ML ONE ×2 (12:07)
[2020-05-08] MEDS ORDERED: ROCURONIUM BROMIDE 50 MG/5 ML SYRINGE ONE ×2 (12:07→14:19)
[2020-05-08] MEDS ORDERED: SUCCINYLCHOLINE CHLORIDE 200 MG/10 ML SYRINGE ONE (12:07)
[2020-05-08] MEDS ORDERED: MIDAZOLAM HCL 2 MG/2 ML SINGLE DOSE VIAL ONE (12:07)
[2020-05-08] MEDS ORDERED: DEXAMETHASONE SOD PHOSPHATE 4 MG/1 ML VIAL ONE (12:26)
[2020-05-08] MEDS ORDERED: BUPIVACAINE HCL/PF 0.5% (5 MG/ML) 30 ML VIAL IJ ONE ×2 (12:46)
--- NOTE | 2020-05-08 13:25 | PN ---
Physical Exam: SUBJECTIVE: Patient seen and examined bedside. In no acute distress. No complaints overnight. Denies any pain n/v/d. OBJECTIVE: Vital Signs Vital Signs - 8 hr 05/08/20 05/08/20 05/08/20 06:00 07:30 09:00 Temperature 97.7 F 97.8 F Pulse Rate 66 59 L Respiratory 18 18 18 Rate Blood Pressure 124/77 144/82 O2 Sat by Pulse 99 100 100 Oximetry (%) GENERAL: The patient is awake, alert, and fully oriented, in no acute distress. HEAD: Normal with no signs of trauma. EYES: PERRL, extraocular movements intact, sclera anicteric, conjunctiva clear. ENT: moist mucous membranes. LUNGS: Breath sounds equal, clear to auscultation bilaterally HEART: Regular rate and rhythm, S1, S2 ABDOMEN: Soft, nondistended, mild tenderness RUQ SKIN: Warm, dry, normal turgor, no rashes or lesions noted Laboratory Results - last 24 hr 05/07/20 05/07/20 05/08/20 04:30 10:45 06:30 WBC 7.0 RBC 4.42 Hgb 12.5 Hct 38.2 MCV 86.5 MCH 28.3 MCHC 32.8 RDW 14.0 Plt Count 320 MPV 7.7 Absolute Neuts (auto) Neutrophils % Lymphocytes % Monocytes % Eosinophils % Basophils % Nucleated RBC % PT with INR INR PTT (Actin FS) Sodium Potassium Chloride Carbon Dioxide Anion Gap BUN Creatinine Est GFR (CKD-EPI)AfAm Est GFR (CKD-EPI)NonAf Random Glucose Calcium Phosphorus Magnesium Total Bilirubin AST ALT Alkaline Phosphatase Total Protein Albumin COVID-19 ([place]) Not detected Blood Type O POSITIVE Antibody Screen Negative 05/08/20 05/08/20 05/08/20 06:30 06:30 06:30 WBC 6.9 RBC 4.42 Hgb 12.4 Hct 38.0 MCV 86.0 MCH 28.2 MCHC 32.7 RDW 14.1 Plt Count 320 MPV 8.1 Absolute Neuts (auto) 3.5 Neutrophils % 50.5 Lymphocytes % 39.7 D Monocytes % 5.7 Eosinophils % 3.4 D Basophils % 0.7 Nucleated RBC % 0 PT with INR 13.20 H INR 1.12 H PTT (Actin FS) 34.8 Sodium 140 Potassium 4.2 Chloride 107 Carbon Dioxide 22 Anion Gap 10 BUN 9.4 Creatinine 0.7 Est GFR (CKD-EPI)AfAm 134.75 Est GFR (CKD-EPI)NonAf 116.26 Random Glucose 76 Calcium 9.0 Phosphorus 4.5 Magnesium 2.0 Total Bilirubin 1.7 H AST 193 H ALT 521 H Alkaline Phosphatase 239 H Total Protein 6.7 Albumin 3.5 COVID-19 ([place]) Blood Type Antibody Screen Active Medications Generic Name Dose Route Start Last Admin Trade Name Freq PRN Reason Stop Dose Admin Levofloxacin 500 mg in 100 mls @ 100 mls/hr 05/08/20 10:00 05/08/20 09:00 Levaquin 500 Mg Premixed Ivpb - IVPB 100 mls/hr DAILY ABILIO Administration Protocol Metronidazole 500 mg in 100 mls @ 100 mls/hr 05/07/20 18:00 05/08/20 10:06 Flagyl 500mg Premixed Ivpb - IVPB 100 mls/hr Q8H-IV ABILIO Administration ASSESSMENT/PLAN: 29 yo Female, , s/p 2 months ago, only PMHx of gestational diabetes, currently on no medications, presented to the ED for the 3rd time in a week for upper abdominal pain. Has worsening transaminitis since her first ED visit. Admitted to the hospital with cholielithiasis/possible choledocholithiasis for MRCP/ERCP and possible Lap dona. Cholielithiasis/Choledocholithiasis Gi consulted (Dr. Hill) continue Levofloxacin 500 mg IV flagy 500 mg IV q8H MRCP negative for dilated or obstructed CBD - no ERCP - Surgery consulted (Dr. Constantino) Lap Dona today Transaminitis - LFTs downtrending today - continue to monitor DVT ppx - SCD FEN - Monitor and replete as appropriate - NPO for procedure tomorrow Visit type - Emergency Visit Emergency Visit: Yes ED Registration Date: 05/07/20 Care time: The patient presented to the Emergency Department on the above date and was hospitalized for further evaluation of their emergent condition. - New Patient This patient is new to me today: No - Critical Care Critical Care patient: No - Discharge Referral Referred to [facility] Med P.C.: No ATTENDING PHYSICIAN STATEMENT I saw and evaluated the patient. I reviewed the resident's note and discussed the case with the resident. I agree with the resident's findings and plan as documented. SUBJECTIVE: OBJECTIVE: ASSESSMENT AND PLAN:
[2020-05-08] MEDS ORDERED: ONDANSETRON 4 MG/2 ML VIAL IVPUSH PRN ×2 (14:30→15:24)
[2020-05-08] MEDS ORDERED: NEOSTIGMINE METHYLSULFATE 0.5 MG/ML - 10 ML MDV ONE (14:51)
[2020-05-08] MEDS ORDERED: oxyCODONE HCL 5 MG TABLET PO PRN ×2 (15:27)
[2020-05-08] MEDS ORDERED: ACETAMINOPHEN 325 MG TABLET (FP) PO PRN (15:28)
--- NOTE | 2020-05-08 15:39 | OP ---
Operative Note - Note: Operative Date: 05/08/20 Pre-Operative Diagnosis: symptomatic cholelithiasis Operation: laparoscopic cholecystectomy with intraoperative cholangiogram Post-Operative Diagnosis: Same as Pre-op Surgeon: Martín Constantino Cooper Helper: Lucia Lees Anesthesiologist/SOAP PRESS FEEDER: Krystal Joseph Anesthesia: General, Local Specimens Removed: gallbladder Estimated Blood Loss (mls): 30 Drains & Tubes with Location: ANA drain RLQ Operative Report Dictated: Yes
--- NOTE | 2020-05-08 15:42 | SURG ---
Surgery Automotive Project Engineer Note Automotive Project Engineer: Lucia Lees PA-C Date of Service: 05/08/20 Diagnosis: symptomatic cholelithiasis Procedure: laparoscopic cholecystectomy with intraoperative choleangiogram I was present for the entirety of the operative procedure. For further detail, please refer to operative report. Visit type - Case Type Case Type: ED Admission - Emergency Emergency Visit: Yes ED Registration Date: 05/07/20 Care time: The patient presented to the Emergency Department on the above date and was hospitalized for further evaluation of their emergent condition. - New patient This patient is new to me today: Yes Date on this admission: 05/08/20
--- NOTE | 2020-05-08 18:28 | PN ---
Teaching Attending Note Name of Resident: Yani Vargas ATTENDING PHYSICIAN STATEMENT I saw and evaluated the patient. I reviewed the resident's note and discussed the case with the resident. I agree with the resident's findings and plan as documented. SUBJECTIVE: s/p lap dona OBJECTIVE: Vital Signs Temperature 98.4 F 05/08/20 18:10 Pulse Rate 72 05/08/20 17:55 Respiratory Rate 18 05/08/20 17:55 Blood Pressure 129/91 05/08/20 17:55 O2 Sat by Pulse Oximetry (%) 99 05/08/20 17:55 PE:per resident's note CBCD WBC 6.9 K/mm3 (4.0-10.0) 05/08/20 06:30 WBC 7.0 K/mm3 (4.0-10.0) 05/08/20 06:30 RBC 4.42 M/mm3 (3.60-5.2) 05/08/20 06:30 RBC 4.42 M/mm3 (3.60-5.2) 05/08/20 06:30 Hgb 12.4 GM/dL (10.7-15.3) 05/08/20 06:30 Hgb 12.5 GM/dL (10.7-15.3) 05/08/20 06:30 Hct 38.0 % (32.4-45.2) 05/08/20 06:30 Hct 38.2 % (32.4-45.2) 05/08/20 06:30 MCV 86.0 fl (80-96) 05/08/20 06:30 MCV 86.5 fl (80-96) 05/08/20 06:30 MCHC 32.7 g/dl (32.0-36.0) 05/08/20 06:30 MCHC 32.8 g/dl (32.0-36.0) 05/08/20 06:30 RDW 14.0 % (11.6-15.6) 05/08/20 06:30 RDW 14.1 % (11.6-15.6) 05/08/20 06:30 Plt Count 320 K/MM3 (134-434) 05/08/20 06:30 Plt Count 320 K/MM3 (134-434) 05/08/20 06:30 MPV 7.7 fl (7.5-11.1) 05/08/20 06:30 MPV 8.1 fl (7.5-11.1) 05/08/20 06:30 CMP Sodium 140 mmol/L (136-145) 05/08/20 06:30 Potassium 4.2 mmol/L (3.5-5.1) 05/08/20 06:30 Chloride 107 mmol/L (98-107) 05/08/20 06:30 Carbon Dioxide 22 mmol/L (21-32) 05/08/20 06:30 Anion Gap 10 MMOL/L (8-16) 05/08/20 06:30 BUN 9.4 mg/dL (7-18) 05/08/20 06:30 Creatinine 0.7 mg/dL (0.55-1.3) 05/08/20 06:30 Random Glucose 76 mg/dL (74-106) 05/08/20 06:30 Calcium 9.0 mg/dL (8.5-10.1) 05/08/20 06:30 Total Bilirubin 1.7 mg/dL (0.2-1) H 05/08/20 06:30 AST 193 U/L (15-37) H 05/08/20 06:30 ALT 521 U/L (13-61) H 05/08/20 06:30 Alkaline Phosphatase 239 U/L (45-117) H 05/08/20 06:30 Total Protein 6.7 g/dl (6.4-8.2) 05/08/20 06:30 Albumin 3.5 g/dl (3.4-5.0) 05/08/20 06:30 Current Medications Generic Name Dose Route Start Last Admin Trade Name Freq PRN Reason Stop Dose Admin Acetaminophen 650 mg 05/08/20 15:28 05/08/20 17:11 Tylenol - PO 650 mg Q6H PRN Administration pain 1-3 or fever Fentanyl 50 mcg 05/08/20 15:24 Sublimaze Injection - IVPUSH [id number] PRN PAIN-PACU ORDER X 4 DOSES ONLY Lactated Ringer's 1,000 mls @ 125 mls/hr 05/08/20 17:15 05/08/20 17:26 Lactated Ringers Solution IV 125 mls/hr ASDIR ABILIO Administration Ondansetron HCl 4 mg 05/08/20 15:24 Zofran Injection IVPUSH Q6H PRN NAUSEA AND/OR VOMITING Oxycodone HCl 5 mg 05/08/20 15:27 Roxicodone - PO Q4H PRN PAIN LEVEL 1-5 Oxycodone HCl 10 mg 05/08/20 15:27 Roxicodone - PO Q4H PRN PAIN LEVEL 6-10 Home Medications Medication Instructions Recorded Ciprofloxacin [Cipro (Restricted 500 mg PO BID 05/08/20 To Id)] Famotidine [Pepcid] 40 mg PO DAILY 05/08/20 Insulin Glargine,Hum.rec.anlog 46 unit SQ DAILY 05/08/20 [Basaglar Kwikpen U-100] Insulin NPH Human Isophane 46 units DAILY 05/08/20 [Humulin N] metroNIDAZOLE [Flagyl -] 500 mg PO TID 05/08/20 Echo: normal US of abdomen and pelvis: cholelithiasis, hepatomegaly with diffuse fatty infiltration of liver ASSESSMENT AND PLAN: This patient is a 29yof with Pmhx of gestational diabetes, s/p 2 months ago admitted for having an abdominal pain and this is her 3rd visit in ED. for possible cholecystitis for lap. chol. #POD#0 s/p lap chol. due to having symptomatic cholilithiasis , presented with biliary Colic with elevated LFTs with bilirubin /obstructive pattern cannot r/o CBD stone and obstruction : MRCP report: no definite choledocholithiasis or biliary ductal dilatation seen. as per MRI report , no ercp was needed as per DR Pollard . s/p levaquin/flagyl and cefazolin as per surgeon. GI consult appreciated . f/u the labs DVT px: SCds for now
[2020-05-08] MEDS ORDERED: MAG HYDROX/AL HYDROX/SIMETH 30 ML UNIT-DOSE CUP PO ONE (19:04)
[2020-05-08] MEDS ORDERED: traMADol HCL 50 MG TABLET PO ONE (19:05)
[2020-05-09] MEDS: LACTATED RINGERS SOLUTION 1,000 ML IV SCH (00:40)
[2020-05-09 08:10] LABS: HEMATOCRIT 35.7 % (32.4-45.2); HEMOGLOBIN 11.7 GM/dL (10.7-15.3); MCH 28.7 pg (25.7-33.7); MCHC 32.9 g/dl (32.0-36.0); MEAN CELL VOLUME 87.4 fl (80-96); MEAN PLT VOLUME 8.3 fl (7.5-11.1); PLATELET COUNT 347 K/MM3 (134-434); RBC 4.09 M/mm3 (3.60-5.2); RDW 13.8 % (11.6-15.6); WHITE BLOOD COUNT 10.7 K/mm3 (4.0-10.0)
[2020-05-09 08:14] LABS: ALBUMIN 3.4 g/dl (3.4-5.0); BILIRUBIN,TOTAL 1.2 mg/dL (0.2-1); CALCIUM 8.9 mg/dL (8.5-10.1); CREATININE 0.6 mg/dL (0.55-1.3); PHOSPHOROUS 4.5 mg/dL (2.5-4.9); TOT PROT 6.6 g/dl (6.4-8.2)
--- NOTE | 2020-05-09 09:13 | PN ---
Progress Note (short form) - Note Progress Note: Attending Surgeon POD#1 No c/o; voided and OOB; tolerated clear liquids VSS Af abdo-soft; port sites c/d/i; ANA output serous but slight bile tinge (gallbladder was entered during dissection w/bile spillage) extrems-warm; no calf tenderness WBC 10.7 LFT's noted IMP: stable post op PLAN:OOB; decrease IV/continue ANA; trend LFT's. Martín Constantino MD FACS
[2020-05-09] MEDS ORDERED: LACTATED RINGERS SOLUTION 1,000 ML/1,000 ML INFUS.BAG IV SCH (09:15)
--- NOTE | 2020-05-09 10:21 | PN.GI ---
GI Progress Note Subjective: S/P Lap Cecilia POD [address] Constantino yesterday. cholangiogram did not reveal stone, however contrast did not reach small bowel - Objective Vital Signs: Vital Signs Temperature 98.1 F 05/09/20 08:47 Pulse Rate 71 05/09/20 08:47 Respiratory Rate 18 05/09/20 08:56 Blood Pressure 126/70 05/09/20 08:47 O2 Sat by Pulse Oximetry (%) 100 05/09/20 08:56 Constitutional: Calm Eyes: No: Sclera Icterus Cardiovascular: Yes: Regular Rate and Rhythm Respiratory: Yes: CTA Bilaterally Gastrointestinal Inspection: Yes: Other (Dressed trochar sites, ANA drain in place with serosanguinous fluid). No: Distention ...Auscultate: Yes: Normoactive Bowel Sounds ...Palpate: Yes: Tenderness (at trochar sites) ...Percussion: No: Tympanitic Edema: No (No LE edema) Neurological: Yes: Alert Labs: CBC, BMP 05/09/20 06:25 05/09/20 06:25 INR, PTT INR 1.12 (0.83-1.09) H 05/08/20 06:30 Hepatic Panel Total Bilirubin 1.2 mg/dL (0.2-1) H 05/09/20 06:25 AST 178 U/L (15-37) H 05/09/20 06:25 ALT 482 U/L (13-61) H 05/09/20 06:25 Alkaline Phosphatase 324 U/L (45-117) H 05/09/20 06:25 Albumin 3.4 g/dl (3.4-5.0) 05/09/20 06:25 Problem List - Problems (1) Biliary colic Assessment/Plan: S/P Lap Cecilia Bilirubin and transamnimases trending downward, however rise in ALP. ? if secondary to instrumentation of GB / GB fossa Will continue to monitor pattern for now prior to D/C home Discussed with patient Post op care per surgery Code(s): K80.50 - CALCULUS OF BILE DUCT W/O CHOLANGITIS OR CHOLECYST W/O OBST
--- NOTE | 2020-05-09 18:31 | PN ---
Progress Note (short form) - Note Progress Note: Patient is feeling better with no acute distress. feels better Vital Signs Temperature 98.1 F 05/09/20 08:47 Pulse Rate 71 05/09/20 08:47 Respiratory Rate 18 05/09/20 08:56 Blood Pressure 126/70 05/09/20 08:47 O2 Sat by Pulse Oximetry (%) 100 05/09/20 08:56 GENERAL: The patient is awake, alert, and fully oriented, in no acute distress. HEAD: Normal with no signs of trauma. EYES: PERRL, extraocular movements intact, sclera anicteric, conjunctiva clear. ENT: Ears normal, oropharynx clear without exudates, moist mucous membranes. NECK: Trachea midline, full range of motion, supple. LUNGS: Breath sounds equal, clear to auscultation bilaterally, no wheezes, no crackles, no accessory muscle use. HEART: Regular rate and rhythm, S1, S2 without murmur, rub or gallop. ABDOMEN: + lap chol, + ANA drain. NT, no guarding, no rebound, no hepatosplenomegaly, no masses. EXTREMITIES: 2+ pulses, warm, well-perfused, no edema. NEUROLOGICAL: Cranial nerves II through XII grossly intact. Normal speech, gait not observed. PSYCH: Normal mood, normal affect. SKIN: Warm, dry, normal turgor, no rashes or lesions noted CBCD WBC 10.7 K/mm3 (4.0-10.0) H 05/09/20 06:25 RBC 4.09 M/mm3 (3.60-5.2) 05/09/20 06:25 Hgb 11.7 GM/dL (10.7-15.3) 05/09/20 06:25 Hct 35.7 % (32.4-45.2) 05/09/20 06:25 MCV 87.4 fl (80-96) 05/09/20 06:25 MCHC 32.9 g/dl (32.0-36.0) 05/09/20 06:25 RDW 13.8 % (11.6-15.6) 05/09/20 06:25 Plt Count 347 K/MM3 (134-434) 05/09/20 06:25 MPV 8.3 fl (7.5-11.1) 05/09/20 06:25 CMP Sodium 139 mmol/L (136-145) 05/09/20 06:25 Potassium 4.0 mmol/L (3.5-5.1) 05/09/20 06:25 Chloride 107 mmol/L (98-107) 05/09/20 06:25 Carbon Dioxide 24 mmol/L (21-32) 05/09/20 06:25 Anion Gap 8 MMOL/L (8-16) 05/09/20 06:25 BUN 8.0 mg/dL (7-18) 05/09/20 06:25 Creatinine 0.6 mg/dL (0.55-1.3) 05/09/20 06:25 Random Glucose 76 mg/dL (74-106) 05/09/20 06:25 Calcium 8.9 mg/dL (8.5-10.1) 05/09/20 06:25 Total Bilirubin 1.2 mg/dL (0.2-1) H 05/09/20 06:25 AST 178 U/L (15-37) H 05/09/20 06:25 ALT 482 U/L (13-61) H 05/09/20 06:25 Alkaline Phosphatase 324 U/L (45-117) H 05/09/20 06:25 Total Protein 6.6 g/dl (6.4-8.2) 05/09/20 06:25 Albumin 3.4 g/dl (3.4-5.0) 05/09/20 06:25 Echo: normal US of abdomen and pelvis: cholelithiasis, hepatomegaly with diffuse fatty infiltration of liver ASSESSMENT AND PLAN: This patient is a 29yof with Pmhx of gestational diabetes, s/p 2 months ago admitted for having an abdominal pain and this is her 3rd visit in ED. for possible cholecystitis for lap. chol. #POD#1 s/p lap chol. due to having symptomatic cholilithiasis , presented with biliary Colic with elevated LFTs with bilirubin /obstructive pattern cannot r/o CBD stone and obstruction : MRCP report: no definite choledocholithiasis or biliary ductal dilatation seen. as per MRI report , no ercp was needed as per DR Pollard . s/p levaquin/flagyl and cefazolin as per surgeon. GI consult appreciated . LFTs tresnding down but ALKphos elevated will follow possible dc in am if medically stable DVT px: SCds for now Visit type - Emergency Visit Emergency Visit: Yes ED Registration Date: 05/07/20 Care time: The patient presented to the Emergency Department on the above date and was hospitalized for further evaluation of their emergent condition. - New Patient This patient is new to me today: No - Critical Care Critical Care patient: No - Discharge Referral Referred to [facility] Med P.C.: No
[2020-05-09] MEDS ORDERED: traMADol HCL 50 MG TABLET PO ONE (19:31)
[2020-05-10 07:54] LABS: BASO % 0.9 % (0-2.0); EOS % 2.7 % (0-4.5); HEMOGLOBIN 11.1 GM/dL (10.7-15.3); LYMPH % 36.5 % (8-40); MCH 28.2 pg (25.7-33.7); MCHC 32.7 g/dl (32.0-36.0); MEAN CELL VOLUME 86.5 fl (80-96); MEAN PLT VOLUME 7.8 fl (7.5-11.1); MONO % 5.7 % (3.8-10.2); NEUT % 54.2 % (42.8-82.8); PLATELET COUNT 318 K/MM3 (134-434); RBC 3.94 M/mm3 (3.60-5.2); RDW 13.9 % (11.6-15.6); WHITE BLOOD COUNT 7.3 K/mm3 (4.0-10.0)
[2020-05-10 08:15] LABS: ALBUMIN 3.3 g/dl (3.4-5.0); BILIRUBIN,DIRECT 0.3 mg/dL (0.0-0.2); BILIRUBIN,TOTAL 0.9 mg/dL (0.2-1); BLOOD UREA NITROGEN 7.5 mg/dL (7-18); CALCIUM 8.9 mg/dL (8.5-10.1); CREATININE 0.7 mg/dL (0.55-1.3); TOT PROT 6.5 g/dl (6.4-8.2)
--- NOTE | 2020-05-10 09:20 | PN ---
Progress Note (short form) - Note Progress Note: Attending Surgeon POD#2 No c/o; voided and OOB; tolerated clear liquids VSS AF abdo-soft; port sites c/d/i; ANA output serous. extrems-warm; no calf tenderness WBC nl LFT's trending down; t bili. nl ANA 20 cc. IMP: stable post op PLAN: advance diet; drain removed and pending GI evaluation may be d/c'ed home to outpatient f/u. Martín Constantino MD FACS
--- NOTE | 2020-05-10 10:33 | PN ---
Teaching Attending Note Name of Resident: Yamini Meléndez ATTENDING PHYSICIAN STATEMENT I saw and evaluated the patient. I reviewed the resident's note and discussed the case with the resident. I agree with the resident's findings and plan as documented. SUBJECTIVE: Patient is feeling better with no acute distress.tolerating diet. OBJECTIVE: Vital Signs Temperature 98.8 F 05/10/20 06:00 Pulse Rate 59 L 05/10/20 06:00 Respiratory Rate 18 05/10/20 06:00 Blood Pressure 100/59 L 05/10/20 06:00 O2 Sat by Pulse Oximetry (%) 100 05/10/20 06:00 PE: per resident's note no abdominal pain. CBCD WBC 7.3 K/mm3 (4.0-10.0) 05/10/20 07:18 RBC 3.94 M/mm3 (3.60-5.2) 05/10/20 07:18 Hgb 11.1 GM/dL (10.7-15.3) 05/10/20 07:18 Hct 34.0 % (32.4-45.2) 05/10/20 07:18 MCV 86.5 fl (80-96) 05/10/20 07:18 MCHC 32.7 g/dl (32.0-36.0) 05/10/20 07:18 RDW 13.9 % (11.6-15.6) 05/10/20 07:18 Plt Count 318 K/MM3 (134-434) 05/10/20 07:18 MPV 7.8 fl (7.5-11.1) 05/10/20 07:18 CMP Sodium 141 mmol/L (136-145) 05/10/20 07:18 Potassium 4.0 mmol/L (3.5-5.1) 05/10/20 07:18 Chloride 107 mmol/L (98-107) 05/10/20 07:18 Carbon Dioxide 25 mmol/L (21-32) 05/10/20 07:18 Anion Gap 8 MMOL/L (8-16) 05/10/20 07:18 BUN 7.5 mg/dL (7-18) 05/10/20 07:18 Creatinine 0.7 mg/dL (0.55-1.3) 05/10/20 07:18 Random Glucose 84 mg/dL (74-106) 05/10/20 07:18 Calcium 8.9 mg/dL (8.5-10.1) 05/10/20 07:18 Total Bilirubin 0.9 mg/dL (0.2-1) 05/10/20 07:18 AST 72 U/L (15-37) H 05/10/20 07:18 ALT 326 U/L (13-61) H 05/10/20 07:18 Alkaline Phosphatase 240 U/L (45-117) H 05/10/20 07:18 Total Protein 6.5 g/dl (6.4-8.2) 05/10/20 07:18 Albumin 3.3 g/dl (3.4-5.0) L 05/10/20 07:18 Current Medications Generic Name Dose Route Start Last Admin Trade Name Freq PRN Reason Stop Dose Admin Fentanyl 50 mcg 05/08/20 15:24 Sublimaze Injection - IVPUSH [id number] PRN PAIN-PACU ORDER X 4 DOSES ONLY Ondansetron HCl 4 mg 05/08/20 15:24 Zofran Injection IVPUSH Q6H PRN NAUSEA AND/OR VOMITING Oxycodone HCl 5 mg 05/08/20 15:27 Roxicodone - PO Q4H PRN PAIN LEVEL 1-5 Oxycodone HCl 10 mg 05/08/20 15:27 Roxicodone - PO Q4H PRN PAIN LEVEL 6-10 Home Medications Medication Instructions Recorded Ciprofloxacin [Cipro (Restricted 500 mg PO BID 05/08/20 To Id)] Famotidine [Pepcid] 40 mg PO DAILY 05/08/20 Insulin Glargine,Hum.rec.anlog 46 unit SQ DAILY 05/08/20 [Basaglar Kwikpen U-100] Insulin NPH Human Isophane 46 units DAILY 05/08/20 [Humulin N] metroNIDAZOLE [Flagyl -] 500 mg PO TID 05/08/20 Microbiology 05/07/20 05:44 Urine - Urine Clean Catch Urine Culture - Final Normal Urogenital Dianne Laboratory Tests 05/07/20 05/07/20 05/08/20 00:05 10:45 06:30 AST 175 H 638 H 193 H ALT 420 H 816 H 521 H Alkaline Phosphatase 268 H 316 H 239 H 05/09/20 05/10/20 06:25 07:18 AST 178 H 72 H ALT 482 H 326 H Alkaline Phosphatase 324 H 240 H echo: normal US of abdomen and pelvis: cholelithiasis, hepatomegaly with diffuse fatty infiltration of liver ASSESSMENT AND PLAN: This patient is a 29yof with Pmhx of gestational diabetes, s/p 2 months ago admitted for having an abdominal pain and this is her 3rd visit in ED. for possible cholecystitis for lap. chol. #POD#2 s/p lap chol. due to having symptomatic cholilithiasis , presented with biliary Colic with elevated LFTs with bilirubin /obstructive pattern cannot r/o CBD stone and obstruction : MRCP report: no definite choledocholithiasis or biliary ductal dilatation seen. as per MRI report , no ercp was needed as per DR Pollard . s/p levaquin/flagyl and cefazolin as per surgeon. GI consult appreciated . LFTs and alk phos are trending down. patient understands that needs to follow with GI and Dr Constantino within a week period, with repeat labs of liver function , also patient was suggested not to take tylenol since lFts are elevated. dc patient home. patient was recommended weight loss and lifestyle modification once she heals completely.
--- NOTE | 2020-05-10 11:20 | PN.GI ---
GI Progress Note Subjective: No acute events Feeling well Diet being advanced this morning Liver chemistries trending down - Objective Vital Signs: Vital Signs Temperature 98.8 F 05/10/20 06:00 Pulse Rate 59 L 05/10/20 06:00 Respiratory Rate 18 05/10/20 06:00 Blood Pressure 100/59 L 05/10/20 06:00 O2 Sat by Pulse Oximetry (%) 100 05/10/20 06:00 Constitutional: Calm Eyes: No: Sclera Icterus Cardiovascular: Yes: Regular Rate and Rhythm Respiratory: Yes: CTA Bilaterally Gastrointestinal Inspection: Yes: Other (dressed trochar scars). No: Distention ...Auscultate: Yes: Normoactive Bowel Sounds ...Palpate: Yes: Tenderness (TTP at trochar sites) ...Percussion: No: Tympanitic Edema: No (No LE edema) Neurological: Yes: Alert Labs: CBC, BMP 05/10/20 07:18 05/10/20 07:18 INR, PTT INR 1.12 (0.83-1.09) H 05/08/20 06:30 Problem List - Problems (1) Biliary colic Assessment/Plan: Clinically improved Liver chemistries in normalizing trend If tolerating diet, no objections for D/C home Follow-up in office 05/13. Advised Ms. Miller to call office to arrange follow-up Code(s): K80.50 - CALCULUS OF BILE DUCT W/O CHOLANGITIS OR CHOLECYST W/O OBST
[2020-05-10 13:36] VITALS: BP 134/76; PULSE 58; TEMP 98.1
--- NOTE | 2020-05-10 13:40 | DS ---
Physical Exam: SUBJECTIVE: Patient seen and examined, patient was wide awake and conversational, remembered me from the ED when I was seeing another patient. She is feeling well, said that someone came earlier in the morning to remove her drain and she feels ready to go home. She misses her baby son and is excited to see him. OBJECTIVE: Vital Signs Period Temp Pulse Resp BP Sys/Vidal Pulse Ox Last 24 Hr 97.9 F-98.8 F 56-100 18-18 100-134/59-85 96-100 PHYSICAL EXAM GENERAL: female, appears stated age, wearing glasses, AAO x4, in no acute distress HEAD: Normal with no signs of trauma EYES: extraocular movements intact LUNGS: CTAB, no wheezing appreciated HEART: RRR, S1, S2 without murmur ABDOMEN: Soft, mildly tender, mildly distended with post- lines, active bowel sounds, multiple band-aids covering surgical wound EXTREMITIES: 2+ pulses, warm, well-perfused, no edema LABS Laboratory Results - last 24 hr 05/10/20 05/10/20 07:18 07:18 WBC 7.3 RBC 3.94 Hgb 11.1 Hct 34.0 MCV 86.5 MCH 28.2 MCHC 32.7 RDW 13.9 Plt Count 318 MPV 7.8 Absolute Neuts (auto) 4.0 Neutrophils % 54.2 Lymphocytes % 36.5 Monocytes % 5.7 Eosinophils % 2.7 Basophils % 0.9 Nucleated RBC % 0 Sodium 141 Potassium 4.0 Chloride 107 Carbon Dioxide 25 Anion Gap 8 BUN 7.5 Creatinine 0.7 Est GFR (CKD-EPI)AfAm 134.75 Est GFR (CKD-EPI)NonAf 116.26 Random Glucose 84 Calcium 8.9 Total Bilirubin 0.9 Direct Bilirubin 0.3 H AST 72 H ALT 326 H Alkaline Phosphatase 240 H Total Protein 6.5 Albumin 3.3 L HOSPITAL COURSE: 29yo F s/p 2 months ago, only PMHx of gestational diabetes, currently on no medications, presented to the ED for the 3rd time in a week for upper abdominal pain on 05/06/20. She had worsening transaminitis since her first ED visit and was admitted to the hospital due to suspected cholelithiasis, choledocholithiasis, and/or cholangitis. MRCP was negative for a dilated or obstructed common bile duct, and patient underwent laparoscopic cholecystectomy on 05/08/20. Bile spillage occurred perioperatively and surgery was otherwise unremarkable. Patient's LFTs downtrending post surgery, patient is tolerating PO, and has been optimized for discharge home. Date of Admission:05/07/20 Date of Discharge: 05/10/20 Minutes to complete discharge: 37 Discharge Summary Problems reviewed: Yes Reason For Visit: SYMTOMATIC CHOLELITHIASIS,ELEVATED LIVER Current Active Problems Biliary colic (Acute) Choledocholithiasis (Acute) Symptomatic cholelithiasis (Acute) Transaminitis (Acute) Condition: Good - Instructions Diet, Activity, Other Instructions: Hospital course: You came to the emergency department due to upper abdominal pain. Your liver function tests were worsening, and you were admitted to the hospital due to suspected gallbladder stones and/or infection. You were seen by a surgeon and a middle school sports coach, and they decided to remove your gallbladder surgically. Sin ce your operation, you have been feeling better, and you are cleared to return home. Medications: please continue your home medications Follow-up: please see your doctors within one week: - your surgeon Dr. Constantino within one week - please see his detailed instructions below - your middle school sports coach Dr. Hill within 5-7 days. Please discuss with him your follow-up liver function tests Dr. Constantino's Post Operative Discharge Instructions Dear ELVIN VALENCIA, Physical activity Resume your normal everyday activity as tolerated no heavy lifting or exercise until seen by your surgeon. You may walk unlimited amounts of and climb stairs. You may resume driving the car when you feel safe and comfortable behind the wheel and are no longer taking narcotics. Wound care If you have a bandage, leave it on, and keep dry for 72 hours. After that time discard the outer bandage. If there are tapes on the skin under the outer bandage, leave them in place. They will peel off in the next 7 to 10 days. Do Not peel them off. You may shower 2 days after surgery but do not submerge the incisions. If there are tapes present on the skin, they can get wet. Do not apply lotion or ointments to incisions. Diet There are no dietary restrictions. Eat healthy, including much fruit and vegetables, and a high-fiber low-fat diet. Drink 6 to 8 glasses of liquid each day. This will assist in keeping your bowels are regular. Pain management You may take Ibuprofen (for example, Motrin, Advil etc.) Any pain prescription medication ordered should be taken as prescribed for moderate to severe pain. Do not take oral tylenol since can affect your liver function. Call Dr. Constantino for any of the following: Severe pain not relieved by medication Fever of 101 or higher Excessive bleeding or drainage on dressing Inability to urinate If you experience any chest pain or shortness of breath please seek emergency treatment by visiting your nearest emergency room or calling 911. Call the office at [phone] or [phone] and speak with Deuce for a post operative appointment in 7 - 10 days. Referrals: Sunny Hill DO [Staff Physician] - 1 Week Amisha Ruiz MD [Primary Care Provider] - Martín Constantino MD [Staff Physician] - 1 Week Disposition: HOME This patient is new to me today: Yes Date on this admission: 05/10/20 Emergency Visit: Yes ED Registration Date: 05/07/20 Care time: The patient presented to the Emergency Department on the above date and was hospitalized for further evaluation of their emergent condition. Critical Care patient: No - Discharge Referral Referred to [facility] No ATTENDING PHYSICIAN STATEMENT I saw and evaluated the patient. I reviewed the resident's note and discussed the case with the resident. I agree with the resident's findings and plan as documented. SUBJECTIVE: OBJECTIVE: ASSESSMENT AND PLAN:
--- NOTE | 2020-05-12 16:11 | PATH ---
Surgical Pathology Report Patient Name: ELVIN VALENCIA Med. Rec. #: [id number] /Age/Gender: 1990 (Age: 29) / F Account: [id number] Location: [facility] MED/SURG Taken: 05/08/2020 Received: 05/11/2020 Reported: 05/12/2020 Physicians: MD Brianne Thakur M.D. Specimen(s) Received GALLBLADDER Clinical History Symptomatic cholelithiasis, elevated liver panel Final Diagnosis GALLBLADDER, CHOLECYSTECTOMY: CHRONIC CHOLECYSTITIS AND CHOLESTEROLOSIS. Electronically Signed Hannah Gotti M.D. Gross Description Received in formalin, labeled "gallbladder," is a 7.5 x 2.0 x 1.8 cm. gallbladder with a 0.2 cm. in length portion of cystic duct attached. The outer surface is jenkins-dias with a focal defect and varies from smooth to shaggy. The lumen contains green, tenacious bile. There are no choleliths identified within the lumen or within the container. The mucosa is green and velvety with gold cholesterol stippling. The wall of the gallbladder averages 0.1 cm. in thickness. Production Grader sections are submitted in one cassette. 05/11/2020 [facility]05/11/2020
--- NOTE | 2020-05-18 16:19 | OP ---
DATE OF OPERATION: 05/08/2020 PREOPERATIVE DIAGNOSIS: Symptomatic cholelithiasis and possible choledocholithiasis. POSTOPERATIVE DIAGNOSIS: Symptomatic cholelithiasis and possible choledocholithiasis. PROCEDURE: Laparoscopic cholecystectomy with intraoperative cholangiogram. SURGEON: Martín Constantino MD COMFORT STATION ATTENDANT: Lucia Lees PA-C ANESTHESIA: General. OPERATIVE FINDINGS: There was cholelithiasis and chronic cholecystitis, and an intraoperative cholangiogram done via the cystic duct revealed flow into the right and left hepatic ducts and common bile duct down to the duodenum. However, no contrast was able to be visualized in the duodenum. DESCRIPTION OF PROCEDURE: The patient was placed on the operating room table in supine position. After the induction of general anesthesia, the patient's abdomen was prepped with ChloraPrep and draped in sterile fashion. Time-out was taken and then pneumoperitoneum established above the umbilicus using a Veress needle. Once 15 mm of intra-abdominal pressure was obtained, a 5-mm port was placed at the umbilicus. Additional lateral 5-mm ports and a subxiphoid 12-mm port were placed and laparoscopy carried out, and the previously noted findings were observed. The gallbladder was placed on cephalad and lateral traction, and dissection was begun at the neck of the gallbladder where the peritoneum was opened medially and laterally using blunt and sharp dissection and electrocautery. Dissection continued in the triangle of Calot where the cystic duct was identified coursing from the neck of the gallbladder distally to the common bile duct. It was dissected proximally and distally for length. Similarly, the artery was similarly identified and dissected. A critical view of safety was taken, and then the cystic duct was partially opened with the scissor and a cholangiogram catheter that was introduced percutaneously was placed in the cystic duct and secured using a large hemoclip and a cholangiogram was carried out using fluoroscopy; still images were captured as well and findings noted as above. The catheter was then removed and the duct was completely divided proximally and distally using Endo Gadiel after it was clipped twice proximally and distally with large hemoclips. The artery was similarly clipped and divided. Hemostasis was checked for and noted to be good and then the gallbladder was removed from the liver bed in a retrograde fashion using electrocautery. Prior to removal from the edge of the liver, hemostasis was again verified and then the gallbladder removed from the edge of the liver, placed in an EndoCatch, and brought out through the subxiphoid port. Pneumoperitoneum was reestablished, hemostasis verified again, and then the 5-mm lateral and subxiphoid ports were removed under laparoscopic vision without evidence of bleeding from the port sites. The umbilical port was removed and the pneumoperitoneum evacuated. All port sites were infiltrated with 0.5% Marcaine and the skin edges closed with 4-0 Biosyn in a subcuticular and continuous fashion. Steri-Strips and Band-Aid dressings were placed and the procedure terminated at this point and the patient aroused from general anesthesia and transferred to the post anesthesia care unit in stable condition awake and alert. ESTIMATED BLOOD LOSS: 30 mL REPLACEMENTS: Crystalloid. DRAINS: One 10-mm Alfredito-Eagle in the right upper quadrant. SPECIMEN: Gallbladder and contents to Pathology. I, Martín Constantino, was physically present in the operating room from the time the patient was placed on the operating room table until she was transferred to the postanesthesia care unit in my accompaniment. MD CANDELARIO Sandoval/[id number] MTDD
== END 2020-05-10 14:16 | disposition home or self-care (01) | DRG 263 ==
LOC: JER 23:28 → JERBED 05-07 02:53 → J7W 05-07 12:48
PROVIDERS: ADMIT Internal Medicine; ATTEND Internal Medicine
PROC: 0FT44ZZ Resection of Gallbladder, Percutaneous Endoscopic Approach (ICD-10-PCS; principal; 2020-05-08 11:00)
PROC: BF12YZZ Fluoroscopy of Gallbladder using Other Contrast (ICD-10-PCS; 2020-05-08 11:00)
DX: K80.20 Calculus of gallbladder without cholecystitis without obstruction (principal); E66.9 Obesity, unspecified; K76.0 Fatty (change of) liver, not elsewhere classified; R74.0 Nonspecific elevation of levels of transaminase and lactic acid dehydrogenase [LDH]; R31.9 Hematuria, unspecified; Z68.31 Body mass index [BMI] 31.0-31.9, adult
CPT/HCPCS: 36415; 71046-TC-FY; 74181-TC; 76000-TC-FY; 76705-TC; 80048; 80053; 80076; 81003; 83036; 83690; 83735; 84100; 84703; 85025; 85027; 85610; 85730; 86850; 86900; 86901; 87086; 88304-TC; 93005; 93010; 94010; 94760; 99285-25; U0003

== ENCOUNTER 2021-05-07 14:47 | Emergency (ER) | payer OTHER ==
[2021-05-07 15:00] VITALS: BP 131/84; PULSE 77; TEMP 98.1; BMI 36.8
[2021-05-07] MEDS ORDERED: ACETAMINOPHEN 1000 MG/100 ML VIAL (NON FORMULARY) IVPB ONE (16:12)
[2021-05-07] MEDS ORDERED: SODIUM CHLORIDE 0.9% 500 ML INFUS.BAG IV ONE (16:12)
[2021-05-07] MEDS ORDERED: ACETAMINOPHEN INJECTION 100 ML IVPB ONE (16:32)
[2021-05-07 17:34] LABS: BASO % 1.1 % (0-2.0); EOS % 2.4 % (0-4.5); HEMATOCRIT 37.3 % (32.4-45.2); HEMOGLOBIN 12.4 GM/dL (10.7-15.3); LYMPH % 24.4 % (8-40); MCH 26.9 pg (25.7-33.7); MCHC 33.3 g/dl (32.0-36.0); MEAN CELL VOLUME 80.9 fl (80-96); MEAN PLT VOLUME 7.7 fl (7.5-11.1); MONO % 3.7 % (3.8-10.2); NEUT % 68.4 % (42.8-82.8); PLATELET COUNT 426 10^3/uL (134-434); RBC 4.61 M/mm3 (3.60-5.2); RDW 14.3 % (11.6-15.6); WHITE BLOOD COUNT 8.9 K/mm3 (4.0-10.0)
[2021-05-07 17:54] LABS: CALCIUM 9.2 mg/dL (8.5-10.1)
[2021-05-07 17:55] LABS: ALBUMIN 4.1 g/dl (3.4-5.0); BLOOD UREA NITROGEN 7.5 mg/dL (7-18)
[2021-05-07 17:58] LABS: CREATININE 0.7 mg/dL (0.55-1.3)
[2021-05-07 18:00] LABS: BILIRUBIN,TOTAL 0.8 mg/dL (0.2-1); TOT PROT 8.2 g/dl (6.4-8.2)
== END 2021-05-07 19:00 | disposition home or self-care (01) ==
LOC: JER 14:47
PROC: 3E0333Z Introduction of Anti-inflammatory into Peripheral Vein, Percutaneous Approach (ICD-10-PCS; principal; 2021-05-07)
DX: R74.8 Abnormal levels of other serum enzymes (principal)
CPT/HCPCS: 36415; 76705-TC; 80053; 83690; 85025; 99284-25; J0131

== ENCOUNTER 2025-02-22 22:28 | Emergency (ER) | payer OTHER ==
[2025-02-22 22:34] VITALS: BP 136/74; PULSE 78; RESP 16; TEMP 98.4; BMI 36.9
== END 2025-02-22 22:49 | disposition home or self-care (01) ==
LOC: FER 22:28
DX: J02.9 Acute pharyngitis, unspecified (principal)
CPT/HCPCS: 0241U-QW; 87651; 99283-25